=== PATIENT | male | born 1945 | race Caucasian/White ===

== ENCOUNTER 2018-02-28 10:19 | Inpatient (IN) | payer MEDICARE, OTHER, SELFPAY ==
[2018-02-28] VITALS (17 sets, daily range): BP systolic 145–186; BP diastolic 50–86; PULSE 61–85; RESP 13–20; TEMP 36.7–36.9; O2SAT 94–100; BMI 34.9; BMI 34.2
--- NOTE | 2018-02-28 11:03 | CT_ITS ---
STUDY: CTA NECK REASON FOR EXAM: Male, 72 years old. Mental status change TECHNIQUE: 1.25 mm helical cuts were performed through the neck with 100 mL Isovue 370 contrast. MPR performed along with three-dimensional reconstruction of the carotid arteries. COMPARISON: None. FINDINGS: There is a normal-appearing aortic arch with normal origins of the great vessels. Evidence of previous CABG with sternal wires noted. Both CCAs demonstrated normal origins and normal courses through the neck. There are normal carotid bulbs with minimal calcified plaque in the left carotid bulb. There is occlusion of the left ICA at its origin. The right ICA shows approximately 50% stenosis just distal to its origin best seen on axial image 150. The right ICA resumes is normal course and caliber quickly without further evidence of stenosis or dissection. The right vertebral artery is smaller than the left. Soft tissue windows show low-density thyroid nodules. There are scattered subcentimeter jugular chain lymph nodes. No CT evidence of an acute inflammatory process or suspicious inflammation. No airway narrowing or deviation. CT/CTA Neck W/WO Contrast IMPRESSION: Occlusion of the left ICA at its origin Minimal peripheral atherosclerotic plaque in the left common carotid artery bulb 50% stenosis of the right ICA just distal to its origin No suspicious airway narrowing or deviation. No acute inflammation. Electronically Signed: Terrence Dumont MD at 12:24 EDT , Service support ,
--- NOTE | 2018-02-28 11:12 | ED.DCSUM_ITS ---
- ER Visit Summary Date of Service: 02/28/18 Chief Complaint: Right-sided weakness and numbness History of Present Illness: The patient is a 72 M known history of CAD with prior CABG, prior CVAs and TIAs with known carotid stenosis, diet-controlled diabetes and hypertension. Patient was in his normal state of health awoke around 430 this morning and noticed weakness and numbness on his right side. Denies any headache. He was on Plavix that has been stopped but he did take half a Plavix and a baby aspirin this morning. He denies other symptoms. No speech change. Physical Examination: Older male accompanied by his . Vital signs are stable blood pressure 166/68. H EENT exam pupils round reactive light extra motions are intact. No facial droop. Normal speech. No dysarthria or slurring. Neck nontender. Lungs clear to auscultation bilaterally. Abdomen is soft and nontender. Normal bowel sounds no peritoneal signs. Patient is moving all 4 extremities. He has good motor strength 5 out of 5 on both sides. Subjectively he feels that he is weaker on the right. He does have decreased sensation to his right face, arm and leg. He also has dysarthria of the right arm and right leg. Fingertip to nose he is way off on the right index finger. And also with heel to armenta on the right. His neurologic exam is consistent with a NIH score of 3. With subjective paresthesias on the right face, arm and leg. With ataxia of the right arm and leg. Test Results: Neurological evaluation for stroke. CBC normal. Chemistries normal creatinine of 1. Normal gap. PT/INR normal. Troponin normal. EKG shows a sinus rhythm rate is [address] of the head and neck showed a normal [place] of [place]. Neck clear to the left internal carotid artery. CTA of the neck showed no acute abnormality. Chest x-ray no acute abnormality. CT is read by the radiologist reviewed by me. Emergency Department Course and Treatment: This was a wakeup stroke around 430 this morning. Patient NIH score of around 3. Treatment Plan: Repeat exam no significant change. Patient was also evaluated by the neurologist. I have spoken to the hospitalist about admission to the PCU. Disposition: Admission Impression: Acute right-sided CVA with numbness and ataxia Prior CVA. Prior CAD and PR History of hypertension and diabetes This note was generated with Dragon dictation software. It may contain incorrect words, spelling, and punctuation that were not noted in review of the chart prior to signing ED Disposition - Plan for ED Patient: Chief Complaint: Neuro S/Sx Referrals: William Sweet III, MD [Primary Care Provider] -
[2018-02-28 12:15] LABS: Bedside Glucose 127 mg/dL (70-110)
[2018-02-28 13:16] LABS: Absolute Lymphocyte Count 0.99 X10^3/ul (0.83-4.51); Absolute Neutrophil Count 4.8 X10^3/uL (2.0-7.7); Basophil# 0.02 X10^3/uL; Basophil% 0.3 % (0-1); Eosinophils% 1.5 % (0-5); Hematocrit 41.1 % (40-54); Hemoglobin 14.2 g/dl (13.0-16.5); Lymphocyte # 0.99 X10^3/ul (4.0); Lymphocyte % 15.1 % (19-41); Mean Corp Hgb Conc 34.5 g/gl (32-36); Mean Corpuscular Hgb 31.6 pg (27.0-32.0); Mean Corpuscular Volume 91.5 fL (80-94); Mean Platelet Vol. 10.8 fl (6.2-12.0); Monocyte# 0.66 X10^3/uL; Monocyte% 10.1 % (0-10); Neutrophil # 4.76 X10^3/uL (2.7-7.7); Neutrophil % 72.8 % (47-70); POSITIVE COUNT NO; POSITIVE DIFFERENTIAL NO; POSITIVE MORPHOLOGY NO; Platelet Count 139 K/mm3 (150-450); RBC Distribution Width CV 13.6 % (11.6-14.6); RBC Distribution Width SD 44.8 fl (35.1-43.9); Red Blood Count 4.49 M/mm3 (4.6-6.2); White Blood Count 6.5 K/mm3 (4.4-11.0)
[2018-02-28 13:20] LABS: International Normalized Ratio 1.1; Prothrombin Time (Protime)PT. 13.8 SECONDS (11.7-14.9)
[2018-02-28 13:21] LABS: Partial Thromboplast Time 29.3 Seconds (24.1-36.2)
[2018-02-28 13:29] LABS: Anion Gap 8 (5-15); BUN 16 mg/dL (7-18); BUN/Creat Ratio 15.5 RATIO (10-20); Calcium,Total 9.4 mg/dL (8.5-10.1); Chloride 106 mmol/L (98-107); Creatinine, Serum 1.03 mg/dL (0.70-1.30); EST Glomerular Filtration Rate 75 mL/min (>60); Est Glom Filt Rate - Afr Amer 91 mL/min (>60); Glucose 119 mg/dL (74-106); Potassium 4.5 mmol/L (3.5-5.1); Sodium Level 140 mmol/L (136-145)
--- NOTE | 2018-02-28 13:56 | CON.PCM_ITS ---
Problem List (1) Stroke Status: Acute Qualifiers: CVA mechanism: thrombosis Precerebral and cerebral artery: middle cerebral artery Laterality of affected vessel: left Qualified Code(s): I63.312 - Cerebral infarction due to thrombosis of left middle cerebral artery (2) ICAO (internal carotid artery occlusion) Status: Chronic Qualifiers: Laterality: left Qualified Code(s): I65.22 - Occlusion and stenosis of left carotid artery Reason for Consult Date of Consultation: 02/28/18 Reason for Consultation: Stroke History of Present Illness: The patient is a 72 year old CM with PMH HTN, HLD, H/O Stroke/TIA, H/O Left ICA occlusion, H/O Right CEA (May 2017), H/O bladder cancer s/p resection and BCG, CAD s/p CABG, PVD s/p bypass surgery, open angle glaucoma, morbid obesity admitted with right sided numbness. Per patient he woke up this morning (02/28/18 ) around 4:30 am when he felt his right side was numb, he was normal when he went to sleep last night, denies any facial droop, speech disturbances, vision disturbances, CARR or focal motor weakness. Per patient he was on ASA/Plavix after his stroke in the past, but about 3 months ago was asked to stop Plavix which he has not been taking since, but then this morning when he had the symptoms, he took about half Plavix. NIHSS on admission was 3 per ED documentation, patient was not tpa candidate since it was wake up stroke, per patient he lives with his , does not use cane or walker to ambulate, does drive, denies any falls, and does not need any assistance for his ADLs, CTA head /neck showed chronic left ICA occlusion, 50% stenosis of the right ICA,? Left P2 occlusion. [] Past Medical History Past Medical History (Chronic Problems): Chronic Problems ICAO (internal carotid artery occlusion) (Chronic) Hyperlipidemia (Chronic) Hypertension (Chronic) Carotid artery disease (Chronic) Bladder cancer (Chronic) CAD (coronary artery disease) (Chronic) Glaucoma (Chronic) Obesity (Chronic) Allergies quinapril [From Accupril] Adverse Reaction (Verified 02/28/18 10:29) Other COUGH Home Medications: Ambulatory Orders Medication Instructions Recorded Aspirin 325 mg PO DAILY@0800 02/28/18 Aspirin E.C. [Ecotrin] 81 mg PO DAILY@0800 02/28/18 Brimonidine Tartrate/Timolol 1 drop LEFT EYE BID 02/28/18 [Combigan 0.2%-0.5% Eye Drops] Latanoprost/Pf [Latanoprost 0.005% 1 drop EACH EYE DAILY 02/28/18 Eye Drop] Losartan Potassium [Cozaar] 50 mg PO DAILY 02/28/18 Metoprolol Succinate [Toprol Xl] 100 mg PO DAILY 02/28/18 Multivitamin [Daily Multiple 1 tablet PO DAILY 02/28/18 Vitamin] Nitroglycerin [Nitrostat] 0.4 mg SL PRN PRN 02/28/18 Pravastatin [Pravachol] 80 mg PO QHS 02/28/18 Vit C/E/Zn/Coppr/Lutein/Zeaxan 1 capsule PO DAILY 02/28/18 [Preservision Areds 2 Softgel] Smoking Status: Former smoker - *Family History Maternal History Items: Heart Disease, Hypertension Paternal History Items: Cancer - Prostate Review of Systems Constitutional: Reports: - - complete ROS negative except as documented in HPI Patient Problems: Active and Suspected Problems Stroke (Acute) - Physical Exam General: Alert HEENT: Normocephalic Neck: Supple Lungs: Normal air movement Cardiovascular: Normal S1, Normal S2 Abdomen: Bowel Sounds Present Extremities: No cyanosis Skin: No rashes Musculoskeletal: No Tenderness to Palpation of Joints or Extremities Neurological: - - consious, alert, CN 2-12 grossly intact except ?right homonymous hemianopia, power 5/5 both UE/LE, mild sensory loss to light touch right side, extinction present in the right leg, no cerebellar signs, Reflexes + B/L B/S/T/K/A, gait deferred, NIHSS 4 at present, mRS 0 at baseline Psych/Mental Status: Normal Affect Vital Signs Temp Pulse Resp BP Pulse Ox 98.1 F 78 14 162/73 H 98 02/28/18 10:20 02/28/18 13:31 02/28/18 13:31 02/28/18 12:33 02/28/18 13:31 Oxygen Flow Rate (L/min) 2 Oxygen Delivery Method Nasal Cannula Weight: 104.326 kg Body Mass Index (BMI) 34.9 Finger Stick Blood Glucose 127 Laboratory Tests Past 24 Hrs 02/28/18 02/28/18 02/28/18 13:00 13:00 13:00 WBC 6.5 RBC 4.49 L Hgb 14.2 Hct 41.1 MCV 91.5 MCH 31.6 MCHC 34.5 RDW 13.6 RDW Differential 44.8 H Plt Count 139 L MPV 10.8 Immature Gran % (Auto) 0.200 Neut % (Auto) 72.8 H Lymph % (Auto) 15.1 L [place] % (Auto) 10.1 H Eos % (Auto) 1.5 Baso % (Auto) 0.3 Absolute Neuts (auto) 4.8 Absolute Lymphs (auto) 0.99 Total Counted Not Reportable PT 13.8 INR 1.1 APTT 29.3 Sodium 140 Potassium 4.5 Chloride 106 Carbon Dioxide 26.0 Anion Gap 8 BUN 16 Creatinine 1.03 Estim Creat Clear Calc 61.80 Est GFR (MDRD) Af Amer 91 Est GFR (MDRD) Non-Af 75 BUN/Creatinine Ratio 15.5 Glucose 119 H Calcium 9.4 Troponin I 0.025 POC Glucose 02/28/18 12:12 POC Glucose 127 H Assessment/Plan All Active Problems Stroke (Acute) The patient is a 72 year old CM with PMH HTN, HLD, H/O Stroke/TIA, H/O Left ICA occlusion, H/O Right CEA (May 2017), H/O bladder cancer s/p resection and BCG, CAD s/p CABG, PVD s/p bypass surgery, open angle glaucoma, morbid obesity admitted with right sided numbness. Per patient he woke up this morning (02/28/18 ) around 4:30 am when he felt his right side was numb, he was normal when he went to sleep last night, denies any facial droop, speech disturbances, vision disturbances, CARR or focal motor weakness. Per patient he was on ASA/Plavix after his stroke in the past, but about 3 months ago was asked to stop Plavix which he has not been taking since, but then this morning when he had the symptoms, he took about half Plavix. NIHSS on admission was 3 per ED documentation, patient was not tpa candidate since it was wake up stroke, per patient he lives with his , does not use cane or walker to ambulate, does drive, denies any falls, and does not need any assistance for his ADLs, CTA head /neck showed chronic left ICA occlusion, 50% stenosis of the right ICA, ? left P2 occlusion. Impression Acute right sided numbness-Likely Left [employer] stroke Chronic Left ICA occlusion H/O Right CEA in May 2017 Plan -ASA 81 mg PO once daily and Plavix 75 mg PO once daily. Dual AP for 3 months then change to single AP with Plavix. Increased bleeding risk discussed with patient. -Change Pravachol to Lipitor 80 mg PO q hs -Check MRI brain -Check TTE/LDL/Hba1c -Avoid hypotension. Keep head end of the bed flat -Stroke risk factors discussed and stroke education provided -30 day event recorder -PT/OT/ST -GI/DVT prophylaxis -Fall precautions -Further medical management per primary team -Follow up with Neurology as outpatient -Please call with questions if any -Thank you for allowing us to participate in patient's care and management I spent 60 minutes of critical care time taking history, doing physical examination, reviewing medical records, coordinating care and counseling patient and his . Code Visit Inpatient E&M: 01323 Init Hosp L3
--- NOTE | 2018-02-28 15:48 | PCM.HP.STD ---
<Ilene Varma - Last Filed: 02/28/18 16:17> Problem List (1) Stroke Status: Acute Qualifiers: CVA mechanism: thrombosis Precerebral and cerebral artery: middle cerebral artery Laterality of affected vessel: left Qualified Code(s): I63.312 - Cerebral infarction due to thrombosis of left middle cerebral artery (2) ICAO (internal carotid artery occlusion) Status: Chronic Qualifiers: Laterality: left Qualified Code(s): I65.22 - Occlusion and stenosis of left carotid artery (3) Hyperlipidemia Status: Chronic (4) Hypertension Status: Chronic (5) Carotid artery disease Status: Chronic (6) Bladder cancer Status: Chronic (7) CAD (coronary artery disease) Status: Chronic (8) Glaucoma Status: Chronic (9) Obesity Status: Chronic History of Present Illness Date of Admission: 02/28/18 Chief Complaint: Right sided numbness, weakness, right vision changes. The patient is a 72 year old M who presents to the Emergency Room due to right sided numbness and weakness and associated loss of peripheral vision right side. Patient states this began approximately 4am this morning. He denies speech changes, facial droop, difficulty swallowing. Symptoms have improved since arriving to ER. Continues to have right-sided numbness. Denies significant right-sided weakness. States he has history of TIA. Denies history of stroke. States he was previously on aspirin which she stopped taking 3 months ago. Does not follow with neurology. Patient notes he has chronic vision changes due to glaucoma however his right peripheral vision seems to be worsened since this morning. He denies chest pain, shortness of breath. He has a past medical history of TIA, left ICA occlusion, right CEA, hypertension, hyperlipidemia, bladder cancer currently undergoing BCG treatment, CAD status post CABG, PVD, open-angle glaucoma, obesity. Past Medical History Past Medical History (Chronic Problems): Chronic Problems ICAO (internal carotid artery occlusion) (Chronic) Hyperlipidemia (Chronic) Hypertension (Chronic) Carotid artery disease (Chronic) Bladder cancer (Chronic) CAD (coronary artery disease) (Chronic) Glaucoma (Chronic) Obesity (Chronic) Allergies quinapril [From Accupril] Adverse Reaction (Verified 02/28/18 10:29) Other COUGH Home Medications: Ambulatory Orders Medication Instructions Recorded Aspirin 325 mg PO DAILY@0802/28/18 Aspirin E.C. [Ecotrin] 81 mg PO DAILY@0800 02/28/18 Brimonidine Tartrate/Timolol 1 drop LEFT EYE BID 02/28/18 [Combigan 0.2%-0.5% Eye Drops] Latanoprost/Pf [Latanoprost 0.005% 1 drop EACH EYE DAILY 02/28/18 Eye Drop] Losartan Potassium [Cozaar] 50 mg PO DAILY 02/28/18 Metoprolol Succinate [Toprol Xl] 100 mg PO DAILY 02/28/18 Multivitamin [Daily Multiple 1 tablet PO DAILY 02/28/18 Vitamin] Nitroglycerin [Nitrostat] 0.4 mg SL PRN PRN 02/28/18 Pravastatin [Pravachol] 80 mg PO QHS 02/28/18 Vit C/E/Zn/Coppr/Lutein/Zeaxan 1 capsule PO DAILY 02/28/18 [Preservision Areds 2 Softgel] Surgical History: - - CABG, aortofemoral bypass, right carotid endarterectomy, bladder tumor resection. Psychiatric History: No pertinent psych hx Lives: Spouse/ Significant Other Smoking Status: Former smoker Tobacco Use: Non-smoker Drugs: None - *Family History Maternal History Items: Heart Disease, Hypertension Paternal History Items: Cancer - Prostate Review of Systems Constitutional: Denies: Chills, Fever, Weight Change Eyes: Reports: Vision Change - Right peripheral HEENT: Denies: Difficulty Swallowing, Dysphasia, Head Aches, Sinus Congestion, Sinus Drainage Cardiovascular: Denies: Chest Pain, Edema, Light Headedness, Palpitations, Syncope Respiratory: Denies: Cough, Shortness of breath at rest, Sputum production Gastrointestinal: Denies: Abdominal Pain, Nausea, Vomiting Genitourinary: Denies: Dysuria Musculoskeletal: Denies: Joint Pain, Joint Tenderness Skin: Denies: Rash, Wounds Neurological: Reports: Numbness - Right arm, right leg. Denies: Slurred speech, Confusion, Difficulty swallowing, Focal weakness, Tingling Psychiatric: Denies: Anxiety, Depression, Homicidal Ideations, Suicidal Ideations Hematologic/ Lymphatic: Denies: Easy Bruising, Easy Bleeding VTE Information - Inpt Only VTE Present on Admission: No VTE Mechan Device Prophylaxis: None VTE Pharm Prophylaxis ordered?: Yes Patient Problems: Active and Suspected Problems Stroke (Acute) - Physical Exam General: Alert, Oriented x3, Cooperative, No apparent distress HEENT: Atraumatic, PERRLA, EOMI, Normocephalic Oral: Moist Mucosa Neck: Supple, No JVD, Negative Carotid Bruits Lungs: Clear to auscultation, Diminished Cardiovascular: Regular rate, Regular Rhythm, Normal S1, Normal S2, No murmurs Abdomen: Bowel Sounds Present, Soft, Non Tender, Non-Distended, Obese Extremities: No clubbing, No cyanosis, No edema, Capillary Refill Less than 3 Seconds Skin: No rashes, No breakdown Musculoskeletal: No Tenderness to Palpation of Joints or Extremities Neurological: Cranial nerves II-XII grossly intact, - - RUE/RLE sensory deficit and ataxia. Right hemianopia. Strength equal bilaterally. Psych/Mental Status: Normal Affect, Appropriate Vital Signs Temp Pulse Resp BP Pulse Ox 98.1 F 71 16 166/50 H 96 02/28/18 10:20 02/28/18 15:30 02/28/18 15:30 02/28/18 15:30 02/28/18 15:30 Oxygen Flow Rate (L/min) 2 Oxygen Delivery Method Room Air Weight: 230 lb Body Mass Index (BMI) 34.9 Finger Stick Blood Glucose 127 Laboratory Tests Past 24 Hrs 02/28/18 02/28/18 02/28/18 13:00 13:00 13:00 WBC 6.5 RBC 4.49 L Hgb 14.2 Hct 41.1 MCV 91.5 MCH 31.6 MCHC 34.5 RDW 13.6 RDW Differential 44.8 H Plt Count 139 L MPV 10.8 Immature Gran % (Auto) 0.200 Neut % (Auto) 72.8 H Lymph % (Auto) 15.1 L [place] % (Auto) 10.1 H Eos % (Auto) 1.5 Baso % (Auto) 0.3 Absolute Neuts (auto) 4.8 Absolute Lymphs (auto) 0.99 Total Counted Not Reportable PT 13.8 INR 1.1 APTT 29.3 Sodium 140 Potassium 4.5 Chloride 106 Carbon Dioxide 26.0 Anion Gap 8 BUN 16 Creatinine 1.03 Estim Creat Clear Calc 61.80 Est GFR (MDRD) Af Amer 91 Est GFR (MDRD) Non-Af 75 BUN/Creatinine Ratio 15.5 Glucose 119 H Calcium 9.4 Troponin I 0.025 POC Glucose 02/28/18 12:12 POC Glucose 127 H Assessment/Plan All Active Problems Stroke (Acute) 1. Acute right-sided numbness, ataxia-suspected left MCA stroke. Neurology following. Patient reports history of TIA. Denies history of CVA. Head CTA showed chronic occluded left ICA. No other significant stenosis. Next CTA showed 50% stenosis right ICA. Obtain MRI of brain. Change home Pravachol regimen to Lipitor 80 mg p.o. nightly. Continue aspirin 81 mg and Plavix 75 mg, dual antiplatelet therapy for 3 months. Patient can then resume Plavix only. Obtain echo. Check fasting lipid panel in a.m. Hemoglobin A1c. Permissive hypertension. 30-day event recorder at discharge. PT/OT/ST. Neuro check Q4. 2. Carotid artery disease-chronic left ICA occlusion. History of right carotid endarterectomy May 2017. Continue aspirin, statin. 3. CAD status post CABG-continue aspirin, statin, metoprolol. Denies chest pain. Patient reports normal stress test in October 2016. 4. Bladder cancer-currently undergoing BCG treatment. 5. PVD-continue aspirin, statin. 6. Open-angle glaucoma-resume home ophthalmic regimen. 7. Obesity-encourage diet and lifestyle modifications. Nutrition consult. 8. Hypertension-permissive secondary to #1. Avoid hypotension. 9. Hyperlipidemia-continue high-dose statin. 10. Unclear history of type 2 diabetes mellitus-not on home regimen. Check hemoglobin A1c. 11. History of aortofemoral bypass DVT prophylaxis-Lovenox subcu. This patient was seen by JOSEPH Moran under the supervision of Dr. Salazar. <Aristides Salazar F - Last Filed: 02/28/18 16:37> History of Present Illness The patient is a 72 year old M [] Past Medical History Allergies quinapril [From Accupril] Adverse Reaction (Verified 02/28/18 10:29) Other COUGH - Physical Exam Vital Signs Temp Pulse Resp BP Pulse Ox 98.1 F 66 18 151/68 H 95 02/28/18 16:21 02/28/18 16:21 02/28/18 16:21 02/28/18 16:21 02/28/18 16:21 Oxygen Delivery Method Room Air Weight: 225 lb 12.054 oz Body Mass Index (BMI) 34.2 Assessment/Plan Addendum: Dr. Salazar I personally examined the patient and reviewed the chart. I agree with the above. Raymundo Barahona is a 72-year-old male with significant vascular history including coronary artery disease status post CABG and a carotid artery disease with chronic left ICA occlusion is 100%. He presents with acute right sided numbness in both his upper and lower extremity. He denies any weakness in any of his extremities. General: Alert, Oriented x3, Cooperative, No apparent distress HEENT: Atraumatic, PERRLA, EOMI, Normocephalic Oral: Moist Mucosa Neck: Supple, No JVD Lungs: Clear to auscultation, Normal air movement, No rhonchi, No wheeze, No rales Cardiovascular: Regular rate, Regular Rhythm, Normal S1, Normal S2, No murmurs Abdomen: Soft, Non Tender, Non-Distended, No Hepato-splenomegaly Extremities: No edema, Capillary Refill Less than 3 Seconds Skin: No rashes, No breakdown Musculoskeletal: No Tenderness to Palpation of Joints or Extremities Neurological: Cranial nerves II-XII grossly intact, Motor Exam 5/5 strength throughout, sensation diminished on the RUE and RLE. Proprioception intact Psych/Mental Status: Normal Affect, Appropriate 1. Acute CVA/coronary artery disease status post CABG/carotid artery occlusion on the left -We will obtain an MRI and an echo. -Panel and A1c pending. -We will start both aspirin and Plavix as well as switch his pravastatin to Lipitor 80 mg daily. -The aspirin and Plavix will be continued for 3 weeks at which point the aspirin will be discontinued and he will be continued only on Plavix. -Per the he had been on aspirin and Plavix prior to this for the last couple of years and she did not notice a significant difference in his bleeding since stopping the Plavix. -We will hold his blood pressure medications for now for permissive hypertension for the next 24-48 hours parameters will be to treat any blood pressures greater than 220 systolic. Code Visit Inpatient E&M: 13829 Init Hosp L3
[2018-02-28 17:17] LABS: Cholesterol 138 mg/dL (200); High Density Lipoprotein 29 mg/dL; Triglycerides 122 mg/dL; Very Low Density Lipoprotein 24 mg/dL (5-40)
[2018-02-28] MEDS: Aspirin 81 MG TAB.CHEW PO (17:46)
[2018-02-28] MEDS: Clopidogrel Bisulfate 75 MG Tablet PO (17:46)
[2018-02-28 18:56] LABS: Hemoglobin A1c 5.7 % (4.2-6.3)
[2018-02-28] MEDS: Heparin Injection (Vial) 5,000 UNIT/ML VIAL 5000 UNIT SC (21:54)
[2018-02-28] MEDS: Atorvastatin Calcium 80 MG Tablet PO (21:54)
[2018-02-28] MEDS: Docusate Sodium 100 MG Capsule PO (21:54)
[2018-03-01] VITALS (14 sets, daily range): BP systolic 139–164; BP diastolic 66–86; PULSE 62–79; RESP 16–18; TEMP 36.4–37.1; O2SAT 94–97; BMI 34.2
[2018-03-01 06:22] LABS: Anion Gap 11 (5-15); BUN 14 mg/dL (7-18); BUN/Creat Ratio 13.7 RATIO (10-20); Calcium,Total 8.9 mg/dL (8.5-10.1); Chloride 107 mmol/L (98-107); Creatinine, Serum 1.02 mg/dL (0.70-1.30); EST Glomerular Filtration Rate 76 mL/min (>60); Est Glom Filt Rate - Afr Amer 92 mL/min (>60); Glucose 105 mg/dL (74-106); Sodium Level 143 mmol/L (136-145)
[2018-03-01] MEDS: Heparin Injection (Vial) 5,000 UNIT/ML VIAL 5000 UNIT SC ×2 (09:07→21:46)
[2018-03-01] MEDS: Docusate Sodium 100 MG Capsule PO ×2 (09:07→21:46)
[2018-03-01] MEDS: Multivitamins,Ther W-Minerals Tablet 1 TABLET PO (09:07)
[2018-03-01] MEDS: Bisacodyl 5 MG Tablet PO (09:07)
[2018-03-01] MEDS: Latanoprost 0.005% 1 Bottle 1 DRP EACH EYE (09:08)
[2018-03-01] MEDS: Clopidogrel Bisulfate 75 MG Tablet PO (09:10)
[2018-03-01] MEDS: Aspirin 81 MG TAB.CHEW PO (09:10)
--- NOTE | 2018-03-01 11:03 | CASEMGMT ---
This RN CM to room to complete CM assessment and pt is currently getting ECHO completed at this time. This RN CM will attempt again later. [place] RN CM
--- NOTE | 2018-03-01 12:41 | PCM.PROGNOTE ---
<Ilene Varma - Last Filed: 03/01/18 12:53> Patient Problems: Active and Suspected Problems Stroke (Acute) Subjective: Patient seen and examined. Feels vision in the right eye and right-sided numbness has improved slightly. Denies new neurologic deficits. PT recommending rehab for further therapy. Patient hesitant, however going to discuss with . - Physical Exam General: Alert, Oriented x3, Cooperative, No apparent distress HEENT: Atraumatic, PERRLA, EOMI, Normocephalic, - - Right eye peripheral deficit Neck: Supple, No JVD, Negative Carotid Bruits Lungs: Clear to auscultation, Diminished Cardiovascular: Regular rate, Regular Rhythm, Normal S1, Normal S2, No murmurs Abdomen: Bowel Sounds Present, Soft, Non Tender, Non-Distended Extremities: No clubbing, No cyanosis, No edema, Capillary Refill Less than 3 Seconds Skin: No rashes, No breakdown Musculoskeletal: No Tenderness to Palpation of Joints or Extremities Neurological: Cranial nerves II-XII grossly intact, - - RUE/RLE sensory deficit and ataxia. Right hemianopia. Strength equal bilaterally. Psych/Mental Status: Normal Affect, Appropriate Vital Signs Temp Pulse Resp BP Pulse Ox 98.7 F 76 18 163/76 H 94 03/01/18 09:11 03/01/18 11:13 03/01/18 09:11 03/01/18 09:11 03/01/18 09:11 Oxygen Delivery Method Room Air Weight: 225 lb 12.054 oz Body Mass Index (BMI) 34.2 Intake and Output for Last 24 Hours 02/27/18 02/28/18 03/01/18 23:59 23:59 23:59 Intake Total 480 / 480 120 / 120 Output Total 1000 / 1000 750 / 750 Balance -520 / -520 -630 / -630 Laboratory Tests Past 24 Hrs 03/01/18 05:20 Sodium 143 Potassium 4.0 Chloride 107 Carbon Dioxide 25.0 Anion Gap 11 BUN 14 Creatinine 1.02 Estim Creat Clear Calc 62.40 Est GFR (MDRD) Af Amer 92 Est GFR (MDRD) Non-Af 76 BUN/Creatinine Ratio 13.7 Glucose 105 Calcium 8.9 Medical Necessity - Tobacco Use Smoking Status: Former smoker Tobacco Use: Non-smoker Assessment/Plan All Active Problems Stroke (Acute) 1. Right-sided numbness, ataxia, right hemianopia-subacute left MCA stroke. Neurology following. Patient reports history of TIA. Denies history of CVA. Head CTA showed chronic occluded left ICA. No other significant stenosis. Next CTA showed 50% stenosis right ICA. MRI of brain showed subacute cortical based ischemic infarct of the left lingual gyrus, left para hippocampus and left hippocampus. Subacute lacunar ischemic infarct in the left thalamus. Change home Pravachol regimen to Lipitor 80 mg p.o. nightly. Continue aspirin 81 mg and Plavix 75 mg, dual antiplatelet therapy for 3 months. Patient can then resume Plavix only. Echocardiogram pending. Fasting lipid panel and hemoglobin A1c within normal limits. Permissive hypertension. 30-day event recorder at discharge. PT/OT/ST. PT recommending further therapy. Rehab versus TCU at discharge. 2. Carotid artery disease-chronic left ICA occlusion. History of right carotid endarterectomy May 2017. Continue aspirin, statin. 3. CAD status post CABG-continue aspirin, statin, metoprolol. Denies chest pain. Patient reports normal stress test in October 2016. 4. Bladder cancer-currently undergoing BCG treatment. 5. PVD-continue aspirin, statin. 6. Open-angle glaucoma-resume home ophthalmic regimen. 7. Obesity-encourage diet and lifestyle modifications. Nutrition consult. 8. Hypertension-permissive secondary to #1. Avoid hypotension. 9. Hyperlipidemia-continue high-dose statin. 10. Elevated glucose on admission- hemoglobin A1c 5.7%. 11. History of aortofemoral bypass DVT prophylaxis-Lovenox subcu. Discharge planning: Rehab vs SNF pending pre-CERT. This patient was seen by JOSEPH Moran under the supervision of Dr. Clayton. <Joanna Clayton - Last Filed: 03/01/18 14:08> - Physical Exam Vital Signs Temp Pulse Resp BP Pulse Ox 98.7 F 76 18 163/76 H 94 03/01/18 09:11 03/01/18 11:13 03/01/18 09:11 03/01/18 09:11 03/01/18 09:11 Oxygen Delivery Method Room Air Weight: 225 lb 12.054 oz Body Mass Index (BMI) 34.2 Intake and Output for Last 24 Hours 02/27/18 02/28/18 03/01/18 23:59 23:59 23:59 Intake Total 480 / 480 120 / 120 Output Total 1000 / 1000 750 / 750 Balance -520 / -520 -630 / -630 Laboratory Tests Past 24 Hrs 03/01/18 05:20 Sodium 143 Potassium 4.0 Chloride 107 Carbon Dioxide 25.0 Anion Gap 11 BUN 14 Creatinine 1.02 Estim Creat Clear Calc 62.40 Est GFR (MDRD) Af Amer 92 Est GFR (MDRD) Non-Af 76 BUN/Creatinine Ratio 13.7 Glucose 105 Calcium 8.9 Assessment/Plan Patient seen by Ilene Varma nurse practitioner under my supervision. Patient seen and examined. He says right upper extremity numbness and weakness is resolving. He denies any blurred vision, chest pain, shortness of breath, abdominal pain, diarrhea vomiting. Review of systems otherwise negative. Neurology on board. Head CT showed chronic left occluded ICA and a subacute left MCA stroke. He had been taking Plavix but discontinued it upward about 3 months ago on advice. o/e: Vital Signs Height 5 ft 8.11 in Weight: 225 lb 12.054 oz Weight in Pounds 225.8 lbs Pulse Ox 94 Temperature 98.7 F Pulse Rate 76 Respiratory Rate 18 Blood Pressure 163/76 Blood Pressure Position Semi-Fowlers General: Alert, Oriented x3, Cooperative, No apparent distress HEENT: Atraumatic, PERRLA, EOMI, Normocephalic, - - Right eye peripheral deficit Neck: Supple, No JVD, Negative Carotid Bruits Lungs: Clear to auscultation, Diminished Cardiovascular: Regular rate, Regular Rhythm, Normal S1, Normal S2, No murmurs Abdomen: Bowel Sounds Present, Soft, Non Tender, Non-Distended Extremities: No clubbing, No cyanosis, No edema, Capillary Refill Less than 3 Seconds Skin: No rashes, No breakdown Musculoskeletal: No Tenderness to Palpation of Joints or Extremities Neurological: Cranial nerves II-XII grossly intact, has some expressive aphasia. Power 5/5 in all extremities. Mild RUE nad RLE sensory deficit. Gait not checked. NIHSS today-5 Psych/Mental Status: Normal Affect, Appropriate Assessment and Plan 1. Acute right MCA stroke Neurology on board. On aspirin and Plavix. To continue once daily for 3 months and then to switch to Plavix alone. Neurology on board. Continue high intensity statin. 2D echocardiogram showed moderately dilated left ventricle with mild concentric left ventricular hypertrophy and moderate left ventricular systolic dysfunction with mild global right ventricular systolic dysfunction. Global longitudinal strain is 30% which is abnormal. MRI showed a subacute cortical based ischemic infarct of the left lingual gyrus and left upper hippocampus and left hippocampus with a subacute lacunar ischemic infarct in the left thalamus. A1C was 5.7. PT OT on board. Fasting lipid panel is also within normal limits. Permissive hypertension so blood pressure medications on hold. To have a 30 day looping event recorder discharge. Disposition is for rehab for further therapy. Rest of management as per Ilene Varma's notes. Agree with above assessment and plan by Ilene Varma. Code Visit Inpatient E&M: 57160 Subs Hosp L2
--- NOTE | 2018-03-01 12:59 | CASEMGMT ---
Addendum entered by Lianet Vaughn 03/01/18 13:16: Patient's prescription coverage is through his [facility] and [employer]. Lianet FRYE MANAGEMENT REP Original Note: SW met with patient and his . Introduced self and role at [facility]. Patient sees several specialists: Dr Norwood is his Urologist, Dr Albarran is his Dr for circulation, Dr Chaudhary for cardiology, and Dr Ruvalcaba for optometry. SW discussed [facility] TCU and [facility] Rehab unit. Patient's said they would prefer he go home and do outpatient therapy. SW asked patient's if she was in the room when therapy worked with patient and she was. SW asked if she feels she will be able to manage patient at home. She said she feels she will be fine with him at home. REBECCA notified SENIOR VICE PRESIDENT AND CHIEF INFORMATION OFFICER and RN CM that they would be okay with [facility] for therapy. Plan: Outpatient therapy. Lianet FRYE MANAGEMENT REP
--- NOTE | 2018-03-01 14:42 | CASEMGMT ---
Per ESTHER Odom, Dr Victoria spoke with patient about going to TCU or rehab unit and he agreed. SW spoke with Vielka and rehab has a discharge tomorrow. SW will let patient and his know he can go to the rehab unit when ready. Plan: [facility] 4th floor rehab unit L[facility]et [facility]
--- NOTE | 2018-03-01 15:00 | PCM.PN.NEU ---
Patient Problems: Active and Suspected Problems Stroke (Acute) Subjective: No Issues overnight. Continues to have right sided numbness, though there is slight improvement per patient and per patient his vision has improved. MRI brain shows acute/subacute Left MBA INTERNSHIP (left medial temporal/medial occipital) stroke. - Physical Exam General: Alert HEENT: Normocephalic Neck: Supple Lungs: Clear to auscultation Cardiovascular: Normal S1, Normal S2 Abdomen: Bowel Sounds Present Extremities: No cyanosis Skin: No rashes Musculoskeletal: No Tenderness to Palpation of Joints or Extremities Neurological: - - consious, alert, CN 2-12 grossly intact except ?right homonymous hemianopia, power 5/5 both UE/LE, mild sensory loss to light touch right side, extinction present in the right leg, no cerebellar signs, Reflexes + B/L B/S/T/K/A, gait deferred, NIHSS 4 at present, mRS 0 at baseline Psych/Mental Status: Normal Affect Vital Signs Temp Pulse Resp BP Pulse Ox 97.5 F L 75 18 160/86 H 97 03/01/18 13:00 03/01/18 13:00 03/01/18 13:00 03/01/18 13:00 03/01/18 13:00 Oxygen Delivery Method Room Air Weight: 102.4 kg Body Mass Index (BMI) 34.2 Intake and Output for Last 24 Hours 02/27/18 02/28/18 03/01/18 23:59 23:59 23:59 Intake Total 480 / 480 800 / 800 Output Total 1000 / 1000 1300 / 1300 Balance -520 / -520 -500 / -500 Laboratory Tests Past 24 Hrs 03/01/18 05:20 Sodium 143 Potassium 4.0 Chloride 107 Carbon Dioxide 25.0 Anion Gap 11 BUN 14 Creatinine 1.02 Estim Creat Clear Calc 62.40 Est GFR (MDRD) Af Amer 92 Est GFR (MDRD) Non-Af 76 BUN/Creatinine Ratio 13.7 Glucose 105 Calcium 8.9 Medical Necessity - Tobacco Use Smoking Status: Former smoker Tobacco Use: Non-smoker Assessment/Plan All Active Problems Stroke (Acute) The patient is a 72 year old CM with PMH HTN, HLD, H/O Stroke/TIA, H/O Left ICA occlusion, H/O Right CEA (May 2017), H/O bladder cancer s/p resection and BCG, CAD s/p CABG, PVD s/p bypass surgery, open angle glaucoma, morbid obesity admitted with right sided numbness. Per patient he woke up this morning (02/28/18) around 4:30 am when he felt his right side was numb, he was normal when he went to sleep last night, denies any facial droop, speech disturbances, vision disturbances, CARR or focal motor weakness. Per patient he was on ASA/Plavix after his stroke in the past, but about 3 months ago was asked to stop Plavix which he has not been taking since, but then this morning when he had the symptoms, he took about half Plavix. NIHSS on admission was 3 per ED documentation, patient was not tpa candidate since it was wake up stroke, per patient he lives with his , does not use cane or walker to ambulate, does drive, denies any falls, and does not need any assistance for his ADLs, CTA head/neck showed chronic left ICA occlusion, 50% stenosis of the right ICA, ? left P2 occlusion. Impression Acute right sided numbness-Left MBA INTERNSHIP stroke Chronic Left ICA occlusion. ? Left P2 occlusion H/O Right CEA in May 2017 Plan -ASA 81 mg PO once daily and Plavix 75 mg PO once daily. Dual AP for 3 months then change to single AP with Plavix. Increased bleeding risk discussed with patient. -Lipitor 80 mg PO q hs -MRI brain-acute/subacute left MBA INTERNSHIP stroke (left medial temporal/medial occipital infarct) -Check TTE-EF 30%, moderately dilated LA, no ASD and LDL-85, Pdc7o-2.7% -Avoid hypotension. Keep head end of the bed flat -Stroke risk factors discussed and stroke education provided -30 day event recorder -Recommend ophthalmology evaluation as outpatient, for driving clearance. -PT/OT/ST -GI/DVT prophylaxis -Fall precautions -Further medical management per primary team -Follow up with Neurology as outpatient in 3-4 weeks -Please call with questions if any -Thank you for allowing us to participate in patient's care and management I spent 30 minutes of critical care time taking history, doing physical examination, reviewing medical records, coordinating care and counseling patient and his .
--- NOTE | 2018-03-01 15:04 | PN.NEURO_ITS ---
Patient Problems: Active and Suspected Problems Stroke (Acute) Subjective: No Issues overnight. Continues to have right sided numbness, though there is slight improvement per patient and per patient his vision has improved. 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 - Physical Exam General: Alert HEENT: Normocephalic Neck: Supple Lungs: Clear to auscultation Cardiovascular: Normal S1, Normal S2 Abdomen: Bowel Sounds Present Extremities: No cyanosis Skin: No rashes Musculoskeletal: No Tenderness to Palpation of Joints or Extremities Neurological: - - consious, alert, CN 2-12 grossly intact except ?right homonymous hemianopia, power 5/5 both UE/LE, mild sensory loss to light touch right side, extinction present in the right leg, no cerebellar signs, Reflexes + B/L B/S/T/K/A, gait deferred, NIHSS 4 at present, mRS 0 at baseline Psych/Mental Status: Normal Affect Vital Signs Temp Pulse Resp BP Pulse Ox 97.5 F L 75 18 160/86 H 97 03/01/18 13:00 03/01/18 13:00 03/01/18 13:00 03/01/18 13:00 03/01/18 13:00 Oxygen Delivery Method Room Air Weight: 102.4 kg Body Mass Index (BMI) 34.2 Intake and Output for Last 24 Hours 02/27/18 02/28/18 03/01/18 23:59 23:59 23:59 Intake Total 480 / 480 800 / 800 Output Total 1000 / 1000 1300 / 1300 Balance -520 / -520 -500 / -500 Laboratory Tests Past 24 Hrs 03/01/18 05:20 Sodium 143 Potassium 4.0 Chloride 107 Carbon Dioxide 25.0 Anion Gap 11 BUN 14 Creatinine 1.02 Estim Creat Clear Calc 62.40 Est GFR (MDRD) Af Amer 92 Est GFR (MDRD) Non-Af 76 BUN/Creatinine Ratio 13.7 Glucose 105 Calcium 8.9 Medical Necessity - Tobacco Use Smoking Status: Former smoker Tobacco Use: Non-smoker Assessment/Plan All Active Problems Stroke (Acute) The patient is a 72 year old CM with PMH HTN, HLD, H/O Stroke/TIA, H/O Left ICA occlusion, H/O Right CEA (May 2017), H/O bladder cancer s/p resection and BCG, CAD s/p CABG, PVD s/p bypass surgery, open angle glaucoma, morbid obesity admitted with right sided numbness. Per patient he woke up this morning (02/28/18 ) around 4:30 am when he felt his right side was numb, he was normal when he went to sleep last night, denies any facial droop, speech disturbances, vision disturbances, CARR or focal motor weakness. Per patient he was on ASA/Plavix after his stroke in the past, but about 3 months ago was asked to stop Plavix which he has not been taking since, but then this morning when he had the symptoms, he took about half Plavix. NIHSS on admission was 3 per ED documentation, patient was not tpa candidate since it was wake up stroke, per patient he lives with his , does not use cane or walker to ambulate, does drive, denies any falls, and does not need any assistance for his ADLs, CTA head /neck showed chronic left ICA occlusion, 50% stenosis of the right ICA, ? left P2 occlusion. 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 ? Left P2 occlusion H/O Right CEA in May 2017 Plan -ASA 81 mg PO once daily and Plavix 75 mg PO once daily. Dual AP for 3 months then change to single AP with Plavix. Increased bleeding risk discussed with patient. -Lipitor 80 mg PO q hs -MRI brain-acute/subacute left [employer]ICA[employer] BILLING CLERK stroke (left medial temporal/medial occipital infarct) -Check TTE-EF 30%, moderately dilated LA, no ASD and LDL-85, Gcn0t-2.7% -Avoid hypotension. Keep head end of the bed flat -Stroke risk factors discussed and stroke education provided -30 day event recorder -Recommend ophthalmology evaluation as outpatient, for driving clearance. -PT/OT/ST -GI/DVT prophylaxis -Fall precautions -Further medical management per primary team -Follow up with Neurology as outpatient in 3-4 weeks -Please call with questions if any -Thank you for allowing us to participate in patient's care and management I spent 30 minutes of critical care time taking history, doing physical examination, reviewing medical records, coordinating care and counseling patient and his .
--- NOTE | 2018-03-01 15:07 | CASEMGMT ---
Per HOUSEHOLD CHORES, Ilene patient has agreed to go to TCU or rehab whichever has a bed. SW spoke with Vielka and rehab has a d/c tomorrow so they would have a bed. She will check with Dr Victoria to make sure he is okay with patient coming to rehab unit. Lianet FRYE MSW
--- NOTE | 2018-03-01 15:16 | CASEMGMT ---
REBECCA let patient know he can go to the rehab unit when ready. Plan: [facility] 4th floor rehab unit [facility]
[2018-03-01] MEDS: Atorvastatin Calcium 80 MG Tablet PO (21:46)
[2018-03-02] VITALS (7 sets, daily range): BP systolic 144–165; BP diastolic 67–87; PULSE 58–101; RESP 16–18; TEMP 36.3–36.7; O2SAT 95–97; BMI 34.2
[2018-03-02 06:15] LABS: Absolute Lymphocyte Count 1.24 X10^3/ul (0.83-4.51); Absolute Neutrophil Count 4.5 X10^3/uL (2.0-7.7); Basophil# 0.02 X10^3/uL; Basophil% 0.3 % (0-1); Eosinophil# 0.19 X10^3/uL; Eosinophils% 2.8 % (0-5); Hemoglobin 13.8 g/dl (13.0-16.5); Lymphocyte # 1.24 X10^3/ul (4.0); Lymphocyte % 18.1 % (19-41); Mean Corp Hgb Conc 33.7 g/gl (32-36); Mean Corpuscular Hgb 30.9 pg (27.0-32.0); Mean Corpuscular Volume 91.9 fL (80-94); Mean Platelet Vol. 11.2 fl (6.2-12.0); Monocyte# 0.91 X10^3/uL; Monocyte% 13.3 % (0-10); Neutrophil # 4.47 X10^3/uL (2.7-7.7); Neutrophil % 65.4 % (47-70); Platelet Count 145 K/mm3 (150-450); RBC Distribution Width CV 13.5 % (11.6-14.6); RBC Distribution Width SD 44.6 fl (35.1-43.9); Red Blood Count 4.46 M/mm3 (4.6-6.2); White Blood Count 6.8 K/mm3 (4.4-11.0)
[2018-03-02 06:16] LABS: POSITIVE COUNT NO; POSITIVE DIFFERENTIAL NO; POSITIVE MORPHOLOGY NO
[2018-03-02 06:28] LABS: Anion Gap 9 (5-15); BUN 17 mg/dL (7-18); BUN/Creat Ratio 16.8 RATIO (10-20); Calcium,Total 9.6 mg/dL (8.5-10.1); Chloride 106 mmol/L (98-107); Creatinine, Serum 1.01 mg/dL (0.70-1.30); EST Glomerular Filtration Rate 77 mL/min (>60); Est Glom Filt Rate - Afr Amer 93 mL/min (>60); Estimated Creatinine Clearance 63.02 ml/min; Glucose 124 mg/dL (74-106); Potassium 4.1 mmol/L (3.5-5.1); Sodium Level 141 mmol/L (136-145)
--- NOTE | 2018-03-02 09:35 | PCM.CONS.C ---
Problem List (1) Stroke Status: Acute Qualifiers: CVA mechanism: thrombosis Precerebral and cerebral artery: middle cerebral artery Laterality of affected vessel: left Qualified Code(s): I63.312 - Cerebral infarction due to thrombosis of left middle cerebral artery (2) CAD (coronary artery disease) Status: Chronic Qualifiers: Coronary Disease-Associated Artery/Lesion type: bypass graft, autologous vein Reason for Consult Date of Consultation: 03/02/18 Reason for Consultation: Low EF, noted on Echo, done for CVA History of Present Illness: The patient is a 72 year old M [] Past Medical History Allergies/Adverse Reactions: Allergies quinapril [From Accupril] Adverse Reaction (Verified 02/28/18 10:29) Other COUGH Home Medications: Ambulatory Orders Medication Instructions Recorded Aspirin E.C. [Ecotrin] 81 mg PO DAILY@0800 02/28/18 Brimonidine Tartrate/Timolol 1 drop LEFT EYE BID 02/28/18 [Combigan 0.2%-0.5% Eye Drops] Latanoprost/Pf [Latanoprost 0.005% 1 drop EACH EYE DAILY 02/28/18 Eye Drop] Losartan Potassium [Cozaar] 50 mg PO DAILY 02/28/18 Metoprolol Succinate [Toprol Xl] 100 mg PO DAILY 02/28/18 Multivitamin [Daily Multiple 1 tablet PO DAILY 02/28/18 Vitamin] Nitroglycerin [Nitrostat] 0.4 mg SL PRN PRN 02/28/18 Pravastatin [Pravachol] 80 mg PO QHS 02/28/18 Vit C/E/Zn/Coppr/Lutein/Zeaxan 1 capsule PO DAILY 02/28/18 [Preservision Areds 2 Softgel] Clopidogrel Bisulfate [Plavix] 75 mg PO DAILY tablet 03/02/18 Docusate Sodium [Colace] 100 mg PO BID capsule 03/02/18 Past Medical History (Chronic Problems): Chronic Problems ICAO (internal carotid artery occlusion) (Chronic) Hyperlipidemia (Chronic) Hypertension (Chronic) Carotid artery disease (Chronic) Bladder cancer (Chronic) CAD (coronary artery disease) (Chronic) Glaucoma (Chronic) Obesity (Chronic) Surgical History: - - CABG, aortofemoral bypass, right carotid endarterectomy, bladder tumor resection. Psychiatric History: No pertinent psych hx - *Family History Maternal History Items: Heart Disease, Hypertension Paternal History Items: Cancer - Prostate Lives: Spouse/ Significant Other Smoking Status: Former smoker Tobacco Use: Non-smoker Drugs: None Review of Systems - Review of Systems General: Denies: Fever - 12 system reviewed. Pertinent positive and negative ones are per HPI., Night Sweats, Fatigue Cardiovascular: Denies: Chest Discomfort, Shortness of Breath, Orthopnea, PND, Peripheral Edema, Palpitations, Lightheadedness, Dizziness, Near Syncope, Syncope Respiratory: Denies: Cough, Sputum Production, Hemoptysis Gastrointestinal: Denies: Hematemesis, Hematochezia, Melena Genitourinary: Denies: Dysuria, Hematuria Skin: Denies: Rash Objective: Vital Signs Temp Pulse Resp BP Pulse Ox 97.8 F 86 16 164/82 H 95 03/02/18 07:20 03/02/18 07:26 03/02/18 07:20 03/02/18 07:20 03/02/18 07:20 Oxygen Delivery Method Room Air Weight: 102.4 kg Body Mass Index (BMI) 34.2 Intake and Output for Last 24 Hours 02/28/18 03/01/18 03/02/18 23:59 23:59 23:59 Intake Total 480 / 480 1380 / 1380 Output Total 1000 / 1000 1300 / 1300 Balance -520 / -520 80 / 80 General: Awake, Alert, Oriented x 3 Neck: No JVD Chest Wall: Midline Sternotomy Incision Lungs: Clear to auscultation Cardiovascular: Regular Rhythm, No Murmurs Vascular: L Carotid Artery Bruits Abdomen: Bowel Sounds Present, Soft, Non Tender, No HSM, No Organomegaly Extremities: No Cyanosis, No edema 03/02/18 05:38: WBC 6.8, RBC 4.46 L, Hgb 13.8, Hct 41.0, MCV 91.9, MCH 30.9, MCHC 33.7, RDW 13.5, RDW Differential 44.6 H, Plt Count 145 L, MPV 11.2, Immature Gran % (Auto) 0.100, Neut % (Auto) 65.4, Lymph % (Auto) 18.1 L, Gibson % (Auto) 13.3 H, Eos % (Auto) 2.8, Baso % (Auto) 0.3, Absolute Neuts (auto) 4.5, Total Counted Not Reportable 03/02/18 05:38: Sodium 141, Potassium 4.1, Chloride 106, Carbon Dioxide 26.0, Anion Gap 9, BUN 17, Creatinine 1.01, Est GFR (MDRD) Af Amer 93, Est GFR (MDRD) Non-Af 77, BUN/Creatinine Ratio 16.8, Glucose 124 H, Calcium 9.6 Rhythm: EKG: Sinus, narrow QRS. ECHO: Reportedly abnormal, LVEF: 25-30%. Stress Test: Cardiac Cath: PCI: CT Surgery: Holter monitor: EPS: PPM: CXR: Chest CT Scan: Assessment/Plan Chronic CHF, class 1, ischemic CMP. Low EF, probably ischemic, History of AVILA, leg swelling for at least 10 years, followed up at [facility]. CAD, 4 or 5 Vessel CABG, about 20 years ago, no Angina, no arrhythmia, no caths since CABG, according to the patient. PAD, RCA endarterectomy a year ago. Chronic occlusion of Left ICA. S/P Fem-Pob bypass, ? years ago. Recent recurrent CVA, lacunar infarct, subacute findings on MRI. Morbid obesity, possible sleep apnea. HTN, essential, well controlled. Bladder CA, with on going BCG treatment. Recommendation: 1. Continue current treatment for ISchemic CMP, well compensated chronic CHF. 2. FU with metal work duct installer at [place] in 2-3 weeks, re Low EF, need for ICD. 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
[2018-03-02] MEDS: Aspirin 81 MG TAB.CHEW PO (10:17)
[2018-03-02] MEDS: Docusate Sodium 100 MG Capsule PO (10:17)
[2018-03-02] MEDS: Bisacodyl 5 MG Tablet PO (10:17)
[2018-03-02] MEDS: Multivitamins,Ther W-Minerals Tablet 1 TABLET PO (10:17)
[2018-03-02] MEDS: Clopidogrel Bisulfate 75 MG Tablet PO (10:18)
[2018-03-02] MEDS: Latanoprost 0.005% 1 Bottle 1 DRP EACH EYE (10:20)
[2018-03-02] MEDS: Heparin Injection (Vial) 5,000 UNIT/ML VIAL 5000 UNIT SC (10:21)
--- NOTE | 2018-03-02 11:04 | DCINST_ITS ---
- Discharge Diagnoses Current Active Problems: Current Active and Chronic Problems Stroke (Acute) ICAO (internal carotid artery occlusion) (Chronic) Hyperlipidemia (Chronic) Hypertension (Chronic) Carotid artery disease (Chronic) Bladder cancer (Chronic) CAD (coronary artery disease) (Chronic) Glaucoma (Chronic) Obesity (Chronic) You will use the following diet at home:: Cardiac Discharge Activity: Return to Normal Activity, Use Walker Call your doctor if you observe: Numbness or Tingling, Shortness of breath, Dizziness, Chest pain Allergies/Adverse Reactions: Allergies quinapril [From Accupril] Adverse Reaction (Verified 02/28/18 10:29) Other COUGH Medications to take at Discharge Aspirin E.C. [Ecotrin] 81 mg PO DAILY@0800 02/28/18 Brimonidine Tartrate/Timolol [Combigan 0.2%-0.5% Eye Drops] 1 drop LEFT EYE BID 02/28/18 Latanoprost/Pf [Latanoprost 0.005% Eye Drop] 1 drop EACH EYE DAILY 02/28/18 Losartan Potassium [Cozaar] 50 mg PO DAILY 02/28/18 Metoprolol Succinate [Toprol Xl] 100 mg PO DAILY 02/28/18 Multivitamin [Daily Multiple Vitamin] 1 tablet PO DAILY 02/28/18 Nitroglycerin [Nitrostat] 0.4 mg SL PRN PRN 02/28/18 Pravastatin [Pravachol] 80 mg PO QHS 02/28/18 Vit C/E/Zn/Coppr/Lutein/Zeaxan [Preservision Areds 2 Softgel] 1 capsule PO DAILY 02/28/18 Clopidogrel Bisulfate [Plavix] 75 mg PO DAILY tablet 03/02/18 Docusate Sodium [Colace] 100 mg PO BID capsule 03/02/18 Orders to be completed after discharge: 30-Day Event Recorder [[facility]] Location: None Selected Primary Care Physician: William Sweet III, MD [Primary Care Provider] - Please follow up with your Primary Care Physician in: 1 Week following DC from Rehab Test Results: Test results from this visit will be discussed in further detail at your follow- up appointment, if applicable. Please Follow Up With: Chalino Victoria MD When: 1-2 Weeks following DC from Rehab Proposed Discharge Date: 03/02/18
--- NOTE | 2018-03-02 11:08 | PCM.DC.SUM ---
<Ilene Varma - Last Filed: 03/02/18 11:27> Discharge Date and Diagnosis Date of Admission: 02/28/18 Date of Discharge: 03/02/18 - Primary Discharge Diagnosis Active and Suspected Problems 1. Left HOUSEKEEPER HEAD stroke 2. Chronic left ICA occlusion 3. Debility secondary to #1 - Secondary Discharge Diagnosis Chronic Problems ICAO (internal carotid artery occlusion) (Chronic) Hyperlipidemia (Chronic) Hypertension (Chronic) Carotid artery disease (Chronic) Bladder cancer (Chronic) CAD (coronary artery disease) (Chronic) Glaucoma (Chronic) Obesity (Chronic) Hospital Course and Treatment Imaging Results: Diagnostic Data Chest X-Ray 02/28/18 11:03 IMPRESSION: No acute abnormality is seen. Electronically Signed: Chapo Richard MD at 12:33 EDT Tel [phone], Service support , Head CTA 02/28/18 11:03 IMPRESSION: Normal chilkat of [place] without a demonstrated aneurysm or hemodynamically significant stenosis. Occluded left ICA Electronically Signed: Terrence Dumont MD at 12:20 EDT , Service support , Neck CTA 02/28/18 11:03 IMPRESSION: Occlusion of the left ICA at its origin Minimal peripheral atherosclerotic plaque in the left common carotid artery bulb 50% stenosis of the right ICA just distal to its origin No suspicious airway narrowing or deviation. No acute inflammation. Electronically Signed: Terrence Dumont MD at 12:24 EDT , Service support , Brain MRI 03/01/18 20:15 IMPRESSION: 1. Subacute cortical based ischemic infarct along the left lingual gyrus, left parahippocampus and left hippocampus. 2. Subacute lacunar ischemic infarct in the left thalamus. Electronically Signed: Oliver Dia MD at 8:57 EDT , Service support , Dr. Victoria- Neurology Dr. Shelby- Cardiology Operations: None Procedures: 2-D Echocardiogram Summary of Care Provided: The patient is a 72 year old M admitted 02/28/2018 due to right-sided numbness, weakness, right vision changes. 1. Left HOUSEKEEPER HEAD stroke- Head CTA showed chronic occluded left ICA. No other significant stenosis. Next CTA showed 50% stenosis right ICA. MRI of brain showed subacute cortical based ischemic infarct of the left lingual gyrus, left para hippocampus and left hippocampus. Subacute lacunar ischemic infarct in the left thalamus. Change home Pravachol regimen to Lipitor 80 mg p.o. nightly. Continue aspirin 81 mg and Plavix 75 mg, dual antiplatelet therapy for 3 months. Patient can then resume Plavix only. Echocardiogram showed an EF of 30%, mildly dilated aortic root. Cardiology evaluated patient. Recommended continued medical management and outpatient follow-up. Fasting lipid panel and hemoglobin A1c within normal limits. 30-day event recorder at discharge. Rehab at discharge for further PT/OT. 2. Carotid artery disease-chronic left ICA occlusion. History of right carotid endarterectomy May 2017. Continue aspirin, statin. 3. CAD status post CABG-continue aspirin, statin, metoprolol. Denies chest pain. Patient reports normal stress test in October 2016. 4. Bladder cancer-currently undergoing BCG treatment. 5. PVD-continue aspirin, statin. 6. Open-angle glaucoma-resume home ophthalmic regimen. 7. Obesity-encourage diet and lifestyle modifications. 8. Hypertension-resume home losartan and metoprolol regimen at discharge. 9. Hyperlipidemia-continue high-dose statin. 10. Elevated glucose on admission- hemoglobin A1c 5.7%. 11. History of aortofemoral bypass General: Alert, Oriented x3, Cooperative, No apparent distress HEENT: Atraumatic, PERRLA, EOMI, Normocephalic, - - Right eye peripheral deficit Neck: Supple, No JVD, Negative Carotid Bruits Lungs: Clear to auscultation, Diminished Cardiovascular: Regular rate, Regular Rhythm, Normal S1, Normal S2, No murmurs Abdomen: Bowel Sounds Present, Soft, Non Tender, Non-Distended Extremities: No clubbing, No cyanosis, No edema, Capillary Refill Less than 3 Seconds Skin: No rashes, No breakdown Musculoskeletal: No Tenderness to Palpation of Joints or Extremities Neurological: Cranial nerves II-XII grossly intact, - - RUE/RLE sensory deficit and ataxia. Right hemianopia. Strength equal bilaterally. Psych/Mental Status: Normal Affect, Appropriate Patient seen exam prior to discharge. Physical assessment as noted above. Patient stable for discharge to rehab unit. This patient was seen by JOSEPH Moran under the supervision of Dr. Clayton. Discharge Diet: Low fat/ Low Cholesterol Discharge Activity: Return to Normal Activity, Use Walker Call your doctor if you observe: Numbness or Tingling, Shortness of breath, Dizziness, Chest pain Home Medications: Medications to take at Discharge Aspirin E.C. [Ecotrin] 81 mg PO DAILY@0800 02/28/18 Brimonidine Tartrate/Timolol [Combigan 0.2%-0.5% Eye Drops] 1 drop LEFT EYE BID 02/28/18 Latanoprost/Pf [Latanoprost 0.005% Eye Drop] 1 drop EACH EYE DAILY 02/28/18 Losartan Potassium [Cozaar] 50 mg PO DAILY 02/28/18 Metoprolol Succinate [Toprol Xl] 100 mg PO DAILY 02/28/18 Multivitamin [Daily Multiple Vitamin] 1 tablet PO DAILY 02/28/18 Nitroglycerin [Nitrostat] 0.4 mg SL PRN PRN 02/28/18 Pravastatin [Pravachol] 80 mg PO QHS 02/28/18 Vit C/E/Zn/Coppr/Lutein/Zeaxan [Preservision Areds 2 Softgel] 1 capsule PO DAILY 02/28/18 Clopidogrel Bisulfate [Plavix] 75 mg PO DAILY tablet 03/02/18 Docusate Sodium [Colace] 100 mg PO BID capsule 03/02/18 Other Amb Orders: 30-Day Event Recorder [[facility]] Location: None Selected Primary Care Physician: William Sweet III, MD [Primary Care Provider] - Please follow up with your Primary Care Physician in: 1 Week following DC from Rehab Please Follow Up With: Chalino Victoria MD When: 1-2 Weeks following DC from Rehab Disposition: Inpt Rehab Unit/Facility Minutes spent on discharge:: 35 Patient Condition:: Stable Medical Necessity - Tobacco Use Smoking Status: Former smoker Tobacco Use: Non-smoker Meaningful Use Info Meaningful Use Diagnoses (Choose all that apply): Ischemic CVA - CVA Therapy Assessed for PT,OT and/or ST?: Yes - Ischemic Stroke Antithrombotic order at d/c?: Yes Dx of Atrial fib/flutter?: No Statins at discharge?: Yes Primary Dx Acute Ischemic CVA?: Yes IV tPA ordered during stay?: No Reason IV t-PA not ordered: Medical Contraindication <Joanna Clayton - Last Filed: 03/02/18 11:56> Discharge Date and Diagnosis - Secondary Discharge Diagnosis Chronic Problems ICAO (internal carotid artery occlusion) (Chronic) Hyperlipidemia (Chronic) Hypertension (Chronic) Carotid artery disease (Chronic) Bladder cancer (Chronic) CAD (coronary artery disease) (Chronic) Glaucoma (Chronic) Obesity (Chronic) Hospital Course and Treatment Summary of Care Provided: Assessment/Plan Patient seen by Ilene Varma nurse practitioner under my supervision. Patient seen and examined. He also complains of mild right upper extremity numbness but states is much better than previously. Right upper extremity weakness has improved significantly and is able to use his arm. He denies any blurred vision, shortness of breath chest pain, abdominal pain, diarrhea or vomiting. 12 point review of systems otherwise negative. Neurology on board. Head CT showed chronic left occluded ICA and a subacute left MCA stroke. He is being managed for subacute left MCA stroke. Patient is scheduled to be discharged today to rehab unit for intensive rehab. He is to have a 30 day looping event recorder is to follow-up with neurology. Patient was also evaluated by allergy on account of low EF picked up. Echo. EF was around 30%. Cardiology saw him and evaluated him as chronic systolic CHF class I likely due to ischemic cardiomyopathy. The recommendation is to continue current treatment and to follow-up with a make up editor at [facility] in 2-3 weeks. May benefit from ICD in light of low EF. o/e: Vital Signs Height 5 ft 8.11 in Weight: 225 lb 12.054 oz Weight in Pounds 225.8 lbs Pulse Ox 95 Temperature 97.8 F Pulse Rate 86 Respiratory Rate 16 Blood Pressure 164/82 Blood Pressure Position Semi-Fowlers General: Alert, Oriented x3, Cooperative, No apparent distress HEENT: Atraumatic, PERRLA, EOMI, Normocephalic, - - Right eye peripheral deficit Neck: Supple, No JVD, Negative Carotid Bruits Lungs: Clear to auscultation, Diminished Cardiovascular: Regular rate, Regular Rhythm, Normal S1, Normal S2, No murmurs Abdomen: Bowel Sounds Present, Soft, Non Tender, Non-Distended Extremities: No clubbing, No cyanosis, No edema, Capillary Refill Less than 3 Seconds Skin: No rashes, No breakdown Musculoskeletal: No Tenderness to Palpation of Joints or Extremities Neurological: Cranial nerves II-XII grossly intact, has some expressive aphasia. Power 5/5 in all extremities. Mild RUE nad RLE sensory deficit. Gait not checked. NIHSS today-5 Psych/Mental Status: Normal Affect, Appropriate Assessment and Plan 1. Acute right MCA stroke Neurology on board. On aspirin and Plavix. To continue dual antiplatelet therapy for 3 months and then to switch to Plavix alone. Neurology on board. Continue high intensity statin. 2D echocardiogram showed moderately dilated left ventricle with mild concentric left ventricular hypertrophy and moderate left ventricular systolic dysfunction with mild global right ventricular systolic dysfunction. Global longitudinal strain is 30% which is abnormal. MRI showed a subacute cortical based ischemic infarct of the left lingual gyrus and left upper hippocampus and left hippocampus with a subacute lacunar ischemic infarct in the left thalamus. A1C was 5.7. PT OT on board. Fasting lipid panel is also within normal limits. DC today with 30 day loop recorder being discharged to acute rehab facility. To follow up with make up editor at [facility] in 2-3 weeks. Agree with rest of Ilene RUIZ's note. Plan as stated above. Code Visit Inpatient E&M: 87499 Disch Hosp
[2018-03-02] MEDS: Metoprolol(XL)Succ 100 MG Tablet PO (12:38)
[2018-03-02] MEDS: Losartan Potassium 50 MG Tablet PO (12:38)
== END 2018-03-02 13:30 | DRG 65 ==
LOC: ED 15:35 → PCU 16:17
PROVIDERS: Admitting Provider Family Medicine; Emergency Provider Emergency Medicine; Family Provider Family Medicine; PCP Family Medicine; Visit Provider Student in an Organized Health Care Education/Training Program
DX: I63.532 Cerebral infarction due to unspecified occlusion or stenosis of left posterior cerebral artery (principal); I50.22 Chronic systolic (congestive) heart failure; R53.81 Other malaise; C67.9 Malignant neoplasm of bladder, unspecified; H53.461 Homonymous bilateral field defects, right side; R20.0 Anesthesia of skin; I25.10 Atherosclerotic heart disease of native coronary artery without angina pectoris; R27.0 Ataxia, unspecified; R29.703 NIHSS score 3; E78.5 Hyperlipidemia, unspecified; E66.9 Obesity, unspecified; H40.10X0 Unspecified open-angle glaucoma, stage unspecified; I65.22 Occlusion and stenosis of left carotid artery; I73.9 Peripheral vascular disease, unspecified; Z95.1 Presence of aortocoronary bypass graft; Z79.82 Long term (current) use of aspirin; Z87.891 Personal history of nicotine dependence; Z68.34 Body mass index [BMI] 34.0-34.9, adult; R73.9 Hyperglycemia, unspecified; I25.5 Ischemic cardiomyopathy; R29.705 NIHSS score 5; I11.0 Hypertensive heart disease with heart failure
CPT/HCPCS: 36415; 70496; 70498; 70551; 71045; 80048; 80061; 82962; 83036; 84484; 85025; 85610; 85730; 92507; 92523; 93005; 93306; 97110; 97162; 97166; 97535; 99283; Q9957; Q9967; A4216; C8929

== ENCOUNTER 2018-03-02 13:57 | Inpatient (IN) | payer MEDICARE, OTHER, SELFPAY ==
[2018-03-02 14:12] VITALS: BP 153/70; PULSE 88; RESP 17; TEMP 36.8; O2SAT 96; BMI 34.2
[2018-03-02 19:55] VITALS: BP 135/62; PULSE 88; RESP 16; TEMP 36.8; O2SAT 95
[2018-03-02 20:05] VITALS: BMI 34.2
[2018-03-02] MEDS: Docusate Sodium 100 MG Capsule PO (20:16)
[2018-03-02] MEDS: Pravastatin 80 MG Tablet PO (20:22)
[2018-03-02 21:42] VITALS: O2SAT 96
[2018-03-02 22:00] VITALS: RESP 18
[2018-03-03 06:28] LABS: Hematocrit 43.6 % (40-54); Hemoglobin 14.9 g/dl (13.0-16.5); Mean Corp Hgb Conc 34.2 g/gl (32-36); Mean Corpuscular Hgb 31.2 pg (27.0-32.0); Mean Corpuscular Volume 91.4 fL (80-94); Platelet Count 166 K/mm3 (150-450); RBC Distribution Width CV 13.6 % (11.6-14.6); RBC Distribution Width SD 44.8 fl (35.1-43.9); Red Blood Count 4.77 M/mm3 (4.6-6.2); White Blood Count 8.1 K/mm3 (4.4-11.0)
[2018-03-03 06:32] LABS: Scan Indicated on CBC? Y/N NO
[2018-03-03 06:43] LABS: Anion Gap 12 (5-15); BUN 14 mg/dL (7-18); BUN/Creat Ratio 12.4 RATIO (10-20); Calcium,Total 9.2 mg/dL (8.5-10.1); Chloride 105 mmol/L (98-107); Creatinine, Serum 1.13 mg/dL (0.70-1.30); EST Glomerular Filtration Rate 67 mL/min (>60); Est Glom Filt Rate - Afr Amer 82 mL/min (>60); Estimated Creatinine Clearance 56.33 ml/min; Glucose 133 mg/dL (74-106); Potassium 4.3 mmol/L (3.5-5.1); Sodium Level 139 mmol/L (136-145)
[2018-03-03 07:05] VITALS: O2SAT 95
[2018-03-03 07:19] VITALS: BP 154/87; PULSE 82; RESP 18; TEMP 36.7; O2SAT 97
[2018-03-03] MEDS: Latanoprost 0.005% 1 Bottle 1 DRP EACH EYE (07:54)
[2018-03-03] MEDS: Docusate Sodium 100 MG Capsule PO ×2 (07:54→19:58)
[2018-03-03] MEDS: Enoxaparin 40 MG/0.4 ML Syringe SC (07:54)
[2018-03-03 07:55] VITALS: PULSE 82
[2018-03-03] MEDS: Clopidogrel Bisulfate 75 MG Tablet PO (07:55)
[2018-03-03] MEDS: Losartan Potassium 50 MG Tablet PO (07:55)
[2018-03-03] MEDS: Metoprolol(XL)Succ 100 MG Tablet PO (07:55)
[2018-03-03] MEDS: Aspirin E.C. 81 MG Tablet PO (07:55)
[2018-03-03] MEDS: Multivitamins,Therapeutic Tablet 1 TABLET PO (07:56)
[2018-03-03 10:45] VITALS: BMI 34.2
--- NOTE | 2018-03-03 11:15 | NURSING ---
patient ambulated > 150ft x min assist and w/c follow d/t slight unsteadiness.
--- NOTE | 2018-03-03 11:33 | HP.PCM_ITS ---
History of Present Illness Date of Admission: 03/02/18 Chief Complaint: Debility The patient is a 72 year old M admitted to the rehab unit. 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 He is improved, workup was otherwise negative and he has been admitted to the rehab unit for rehabilitation in order to return home. He lives at home with his in a one-story house. He is previously functionally independent. He has no GI or complaints, denies insomnia and is tolerating therapies thus far. His primary complaint now is decreased memory. He notes that he has trouble remembering people's names and birthdates. Per admission H&P: The patient is a 72 year old M who presents to the Emergency Room due to right sided numbness and weakness and associated loss of peripheral vision right side. Patient states this began approximately 4am this morning. He denies speech changes, facial droop, difficulty swallowing. Symptoms have improved since arriving to ER. Continues to have right-sided numbness. Denies significant right-sided weakness. States he has history of TIA. Denies history of stroke. States he was previously on aspirin which she stopped taking 3 months ago. Does not follow with neurology. Patient notes he has chronic vision changes due to glaucoma however his right peripheral vision seems to be worsened since this morning. He denies chest pain, shortness of breath. He has a past medical history of TIA, left ICA occlusion, right CEA, hypertension, hyperlipidemia, bladder cancer currently undergoing BCG treatment , CAD status post CABG, PVD, open-angle glaucoma, obesity. Past Medical History Past Medical History (Chronic Problems): Chronic Problems ICAO (internal carotid artery occlusion) (Chronic) Hyperlipidemia (Chronic) Hypertension (Chronic) Carotid artery disease (Chronic) Bladder cancer (Chronic) CAD (coronary artery disease) (Chronic) Glaucoma (Chronic) Obesity (Chronic) Allergies quinapril [From Accupril] Adverse Reaction (Verified 02/28/18 10:29) Other COUGH Home Medications: Ambulatory Orders Medication Instructions Recorded Aspirin E.C. [Ecotrin] 81 mg PO DAILY@0800 02/28/18 Brimonidine Tartrate/Timolol 1 drop LEFT EYE BID 02/28/18 [Combigan 0.2%-0.5% Eye Drops] Latanoprost/Pf [Latanoprost 0.005% 1 drop EACH EYE DAILY 02/28/18 Eye Drop] Losartan Potassium [Cozaar] 50 mg PO DAILY 02/28/18 Metoprolol Succinate [Toprol Xl] 100 mg PO DAILY 02/28/18 Multivitamin [Daily Multiple 1 tablet PO DAILY 02/28/18 Vitamin] Nitroglycerin [Nitrostat] 0.4 mg SL PRN PRN 02/28/18 Pravastatin [Pravachol] 80 mg PO QHS 02/28/18 Vit C/E/Zn/Coppr/Lutein/Zeaxan 1 capsule PO DAILY 02/28/18 [Preservision Areds 2 Softgel] Clopidogrel Bisulfate [Plavix] 75 mg PO DAILY 03/02/18 Docusate Sodium [Colace] 100 mg PO BID 03/02/18 Surgical History: - - CABG, aortofemoral bypass, right carotid endarterectomy, bladder tumor resection. Psychiatric History: No pertinent psych hx Smoking Status: Former smoker - *Family History Maternal History Items: Heart Disease, Hypertension Paternal History Items: Cancer - Prostate Review of Systems Constitutional: Denies: Chills, Fever, Weight Change HEENT: Denies: Head Aches, Sinus Congestion, Sinus Drainage Cardiovascular: Denies: Chest Pain, Palpitations Respiratory: Denies: Cough, Shortness of breath at rest, Sputum production Gastrointestinal: Denies: Abdominal Pain, Nausea, Vomiting Genitourinary: Denies: Dysuria Musculoskeletal: Denies: Joint Pain, Joint Tenderness Skin: Denies: Rash, Wounds Neurological: Denies: Numbness, Tingling, Focal weakness Psychiatric: Denies: Anxiety, Depression, Homicidal Ideations, Suicidal Ideations Hematologic/ Lymphatic: Denies: Easy Bruising, Easy Bleeding VTE Information - Inpt Only VTE Present on Admission: Yes VTE Pharm Prophylaxis ordered?: Yes - Physical Exam General: Alert, Oriented x3, Cooperative, No apparent distress Neurological: Cranial nerves II-XII grossly intact Psych/Mental Status: Normal Affect Vital Signs Temp Pulse Resp BP Pulse Ox 36.7 C 82 18 154/87 H 97 03/03/18 07:19 03/03/18 07:55 03/03/18 07:19 03/03/18 07:19 03/03/18 07:19 Oxygen Delivery Method Room Air Weight: 102.4 kg Body Mass Index (BMI) 34.2 Finger Stick Blood Glucose 127 Intake and Output for Last 24 Hours 03/01/18 03/02/18 03/03/18 23:59 23:59 23:59 Intake Total 240 / 240 200 / 200 Output Total 500 / 500 Balance 240 / 240 -300 / -300 Laboratory Tests Past 24 Hrs 03/03/18 03/03/18 06:10 06:10 WBC 8.1 RBC 4.77 Hgb 14.9 Hct 43.6 MCV 91.4 MCH 31.2 MCHC 34.2 RDW 13.6 RDW Differential 44.8 H Plt Count 166 MPV 11.0 Sodium 139 Potassium 4.3 Chloride 105 Carbon Dioxide 22.0 Anion Gap 12 BUN 14 Creatinine 1.13 Estim Creat Clear Calc 56.33 Est GFR (MDRD) Af Amer 82 Est GFR (MDRD) Non-Af 67 BUN/Creatinine Ratio 12.4 Glucose 133 H Calcium 9.2 Current Medications Generic Name Dose Route Start Last Admin Trade Name Freq PRN Reason Stop Dose Admin Aspirin 81 mg 03/03/18 08:00 03/03/18 07:55 Ecotrin PO 81 mg DAILY@0800 ORA Administration Bisacodyl 10 mg 03/02/18 15:47 Dulcolax RECTAL .PRN X 1 PRN Constipation Brimonidine Tartrate 1 drop 03/02/18 22:00 03/03/18 08:05 Combigan Eye Drops LEFT EYE 1 drop BID ORA Administration Clopidogrel Bisulfate 75 mg 03/03/18 10:00 03/03/18 07:55 Plavix PO 75 mg DAILY ORA Administration Docusate Sodium 100 mg 03/02/18 22:00 03/03/18 07:54 Colace PO 100 mg BID ORA Administration Enoxaparin Sodium 40 mg 03/03/18 10:00 03/03/18 07:54 Lovenox SC 40 mg DAILY ORA Administration Latanoprost 1 drop 03/03/18 10:00 03/03/18 07:54 Xalatan Opthalmic EACH EYE 1 drop DAILY ORA Administration Losartan Potassium 50 mg 03/03/18 10:00 03/03/18 07:55 Cozaar PO 50 mg DAILY ORA Administration Magnesium Hydroxide 30 ml 03/02/18 15:47 Milk Of Magnesia PO .PRN X 1 PRN Constipation Metoprolol Succinate 100 mg 03/03/18 10:00 03/03/18 07:55 Toprol Xl (Beta Carlos) PO 100 mg DAILY ORA Administration Multivitamins 1 tablet 03/03/18 08:00 03/03/18 07:56 Multivitamin PO 1 tablet DAILY@0800 ORA Administration Multivitamins/Minerals 1 tablet 03/03/18 10:00 03/03/18 07:58 Healthy Eyes PO 1 tablet DAILY ORA Administration Nitroglycerin 0.4 mg 03/02/18 15:44 Nitrostat SUBLINGUAL Q5M PRN CHEST PAIN Pravastatin Sodium 80 mg 03/02/18 22:00 03/02/18 20:22 Pravachol PO 80 mg QHS ORA Administration Assessment/Plan All Active Problems Stroke (Acute) Debility due to left PRINCIPAL SYSTEMS ENGINEER distribution infarct. Goal of rehab is hoahaoism of prior level functional independence. Plan: Physical therapy for gait and balance Occupational Therapy for ADLs Speech therapy DVT prophylaxis: Lovenox Bowel protocol As needed analgesics Bladder cancer: Continue as needed self catheterizations Glaucoma: Continue eyedrops
--- NOTE | 2018-03-03 13:01 | PCM.RU.PYE ---
Admission Information Status Changes from Prescreening?: No changes Identified Actual Problem List:: Pain, ALteration in Cmfrt, Cognitve Impr/Memory Loss, Bladder Incontinence, BP, Hypertension, Ineffect.D/C Plan r/t Psy Potential Problem List:: DVT, Bleeding, Infection, UTI, Aspiration, Falls, Skin Integrity, Depression Risk of Complications DVT: LMWH, JEAN Hose, Sequential Compression Device Bleeding: Monitor Lab Values, Nursing to Teach Precautions for anti-coagulation therapy., Wound, if applicable, to be assessed every shift., Stroke patients assessed for lethargy or change in status. Infection: Clinical Staff to Monitor for S/S of infection:, S/S of infection include fever, redness, warmth, etc. Urinary Tract Infection: Monitor for frequency, burning, discomfort, or incontinence., Nursing will obtain urine sample for urinalysis and C&S when ordered. Aspiration: Clinical staff will monitor for coughing, drooling, congestion., Speech will evaluate swallowing and dsyphasia., Nursing will monitor patient swallowing during meals. Falls: Patient will be evaluated for Fall Precautions, Patient will be placed on Fall Precautions as indicated per protocol. Skin Breakdown: Nursing will assess skin daily using assessment tool., Nursing will place on Skin Breakdown Precautions as indicated. Pain: Clinical staff will assess patient's pain level per protocol., Medications will be given, if needed, and the pain level reassessed., Other methods: Massage, distraction, decrease stimulus, etc. used PRN. Plan of Care Patient requires physician specializing in physical medicine and rehab oversight to provide close medical supervision of rehab issues including: Pain Management, Sleep Problems, Bowel and Bladder, Medical and co-morbidity Management, DVT prophylaxis, Rehabilitation Leadership, Coordination of treatment team Patient needs Physical Therapy: For a minimum of 1 hour, At least 5 out of 7 days Patient needs Physical Therapy to improve:: Mobility, Mobility, Mobility, Strengthening, Transfers, Stretching, ROM, Endurance, Stairs, Gait, Balance Patient needs Occupational Therapy: For a minimum of 1 hour, At least 5 out of 7 days Patient needs Occupational Therapy to improve ADL's incl.: Eating, Grooming, Bathing, Dressing, Toileting, Toilet transfers, Community Reintegration, Higher functioning activities, Household tasks, Adaptive Equipment, Splinting, Other activities as determined Patient requires speech therapy: For a minimum of 1 hour, At least 5 out of 7 days Patient requires speech therapy for: Swallowing, Cognition, Language Skills, Compensatory Strategies Patient requires 24/ Rehabilitation Nursing for: Pain Issues, Identifying and preventing risk factors, Monitoring and reporting current medical conditions, Assisting with ambulation, transfer, and all ADL's, Teaching patients about disease process and medications, Family teaching, Providing safe environment, Bowel and Bladder Issues, Skin integrity, Medication Management Patient needs Microfiche Duplicator/ Case Management for: Discharge Planning, Arranging Home Equipment or Services, Family Interventions Patient needs Dietary and Nutrition Services for: Adequate Nutrition, Nutritional Supplements, Nutritional Education Goals Patient will remain: free from falls, or injury at time of discharge. Patient will perform bed mobility at: MOD I level of assist. Patient will complete transfers from bed to chair at: MOD I level of assist. Patient will ambulate: 100 feet, with MOD I assist, with LRD Patient will complete upper body dressing at: MOD I level of assist. Patient will complete lower body dressing at: MOD I level of assist. Patient will complete toileting at: MOD I level of assist. Patient will perform bathing at: MOD I level of assist. Patient will complete grooming at: MOD I level of assist. Patient will complete home management skills at: MOD I level of assist. Patient will achieve: 12 stairs, at MOD I assist Patient will have pain level of: of 3 or less Patient's skin will: remain intact, free from infection. Patient will receive: adequate nutrition. Discharge Planning Pt Prognosis for Sig. Practical Improv. w/in Reasonable Time: Good Anticipated D/C Destination: Home with Outpt Therapy Was Preadmission Assessment Accurate?: Yes
--- NOTE | 2018-03-03 15:56 | PCM.PN.HOSP ---
Subjective: Patient is a 72-year-old male admitted to the rehab unit for [facility] PCU for rehab. 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 He remained stable and was discharged to rehab. Hospitalist service was consulted for medical management. Patient seen and examined. He complains of numbness over his right arm and the sole of his left foot which was present when he was admitted with a stroke. He states is gradually gotten better but is still present. He denies any fever chills, cough or chest pain, shortness of breath, abdominal pain, diarrhea vomiting. Point review of systems otherwise negative. Vitals/I&O's: Vital Signs Temp Pulse Resp BP Pulse Ox 98.0 F 82 18 154/87 H 97 03/03/18 07:19 03/03/18 07:55 03/03/18 07:19 03/03/18 07:19 03/03/18 07:19 Oxygen Delivery Method Room Air Weight: 225 lb 12.054 oz Body Mass Index (BMI) 34.2 Finger Stick Blood Glucose 127 Intake and Output for Last 24 Hours 03/01/18 03/02/18 03/03/18 23:59 23:59 23:59 Intake Total 240 / 240 440 / 440 Output Total 500 / 500 Balance 240 / 240 -60 / -60 General: Alert, Oriented x3, Cooperative, No apparent distress HEENT: Atraumatic, PERRLA, EOMI, Normocephalic Oral: Moist Mucosa Neck: Supple, No JVD, Negative Carotid Bruits Lungs: Clear to auscultation, Normal air movement, No rhonchi, No wheeze, No rales Cardiovascular: Regular rate, Regular Rhythm, Normal S1, Normal S2, No murmurs Abdomen: Bowel Sounds Present, Soft, Non Tender, Non-Distended, No Hepato-splenomegaly Extremities: No clubbing, No cyanosis, No edema, Capillary Refill Less than 3 Seconds Skin: No rashes, No breakdown Musculoskeletal: No Tenderness to Palpation of Joints or Extremities Lymphatic: No Cervical, Supraclavicular, or Inguinal Adenopathy Neurological: Cranial nerves II-XII grossly intact, Motor Exam 5/5 strength throughout, - - Mildly decreased sensation to light touch over right upper extremity. Psych/Mental Status: Normal Affect, Appropriate, Alert and oriented to time, place, person, mood and affect Laboratory Results 03/03/18 06:10: WBC 8.1, RBC 4.77, Hgb 14.9, Hct 43.6, MCV 91.4, MCH 31.2, MCHC 34.2, RDW 13.6, RDW Differential 44.8 H, Plt Count 166, MPV 11.0 03/03/18 06:10: Sodium 139, Potassium 4.3, Chloride 105, Carbon Dioxide 22.0, Anion Gap 12, BUN 14, Creatinine 1.13, Estim Creat Clear Calc 56.33, Est GFR (MDRD) Af Amer 82, Est GFR (MDRD) Non-Af 67, BUN/Creatinine Ratio 12.4, Glucose 133 H, Calcium 9.2 Current Medications Aspirin (Ecotrin) 81 mg PO DAILY@0800 [facility] Last Admin: 03/03/18 07:55 Dose: 81 mg Bisacodyl (Dulcolax) 10 mg RECTAL .PRN X 1 PRN PRN Reason: Constipation Brimonidine Tartrate (Combigan Eye Drops) 1 drop LEFT EYE BID [facility] Last Admin: 03/03/18 08:05 Dose: 1 drop Clopidogrel Bisulfate (Plavix) 75 mg PO DAILY [facility] Last Admin: 03/03/18 07:55 Dose: 75 mg Docusate Sodium (Colace) 100 mg PO BID [facility] Last Admin: 03/03/18 07:54 Dose: 100 mg Enoxaparin Sodium (Lovenox) 40 mg SC DAILY [facility] Last Admin: 03/03/18 07:54 Dose: 40 mg Latanoprost (Xalatan Opthalmic) 1 drop EACH EYE DAILY [facility] Last Admin: 03/03/18 07:54 Dose: 1 drop Losartan Potassium (Cozaar) 50 mg PO DAILY [facility] Last Admin: 03/03/18 07:55 Dose: 50 mg Magnesium Hydroxide (Milk Of Magnesia) 30 ml PO .PRN X 1 PRN PRN Reason: Constipation Metoprolol Succinate (Toprol Xl (Beta Carlos)) 100 mg PO DAILY [facility] Last Admin: 03/03/18 07:55 Dose: 100 mg Multivitamins (Multivitamin) 1 tablet PO DAILY@0800 [facility] Last Admin: 03/03/18 07:56 Dose: 1 tablet Multivitamins/Minerals (Healthy Eyes) 1 tablet PO DAILY [facility] Last Admin: 03/03/18 07:58 Dose: 1 tablet Nitroglycerin (Nitrostat) 0.4 mg SUBLINGUAL Q5M PRN PRN Reason: CHEST PAIN Pravastatin Sodium (Pravachol) 80 mg PO QHS [facility] Last Admin: 03/02/18 20:22 Dose: 80 mg Medical Necessity - Tobacco Use Smoking Status: Former smoker Assessment/Plan All Active Problems Stroke (Acute) 1. LEft subacute MCA stroke presented with loss of vision in right eye and right sided numbness CT showed chronic occluded left ICA nad 50% stenosis of right ICA MRI showed subacute cortical ischemic infarct of left lingual gyrus, left parahippocamus and left hippocampus, as well as subacute ishcemic infarct in left thalamus on lipitor 80mg qhs, aspirin 81mg daily, plavix 75mg daily. management as per neuro PT/OT on board 2. CAD and PAD: s/p carotid endarterecdtomy 05/18. Also s/o CABG. on aspirin, plavix and statin as well as metoprolol. 3. Open angle glaucoma: on brimonidine and latanoprost eye drops 4. Hyperlipidemia: on high intensity statin. 5. History of bladder cancer: s/p treatment. In remission. DVT prophylaxis: lovenox This note was generated with [employer] dictation software. It may contain incorrect words, spelling, and punctuation that were not noted in checking the note before signing. Code Visit Inpatient E&M: 32102 Subs Hosp L2
[2018-03-03 19:34] VITALS: BP 139/64; PULSE 72; RESP 18; TEMP 37.1; O2SAT 95
[2018-03-03] MEDS: Pravastatin 80 MG Tablet PO (19:59)
[2018-03-04 02:29] VITALS: BMI 34.2
--- NOTE | 2018-03-04 03:23 | NURSING ---
REVIEWED AND AGREE WITH COATER SMOKING PIPE'S FIM AND HANDOFF CHARTING.
[2018-03-04 06:45] VITALS: O2SAT 95
[2018-03-04 07:10] VITALS: BP 148/80; PULSE 72; RESP 18; TEMP 36.6; O2SAT 98
[2018-03-04] MEDS: Enoxaparin 40 MG/0.4 ML Syringe SC (07:11)
[2018-03-04 07:12] VITALS: PULSE 72
[2018-03-04] MEDS: Metoprolol(XL)Succ 100 MG Tablet PO (07:12)
[2018-03-04] MEDS: Docusate Sodium 100 MG Capsule PO ×2 (07:12→21:39)
[2018-03-04] MEDS: Losartan Potassium 50 MG Tablet PO (07:12)
[2018-03-04] MEDS: Latanoprost 0.005% 1 Bottle 1 DRP EACH EYE (07:12)
[2018-03-04] MEDS: Aspirin E.C. 81 MG Tablet PO (07:12)
[2018-03-04] MEDS: Clopidogrel Bisulfate 75 MG Tablet PO (07:12)
[2018-03-04] MEDS: Multivitamins,Therapeutic Tablet 1 TABLET PO (07:13)
[2018-03-04 09:52] VITALS: BMI 34.2
[2018-03-04 18:46] VITALS: BP 133/74; PULSE 75; RESP 18; TEMP 36.6; O2SAT 96
[2018-03-04 21:37] VITALS: BMI 34.2
[2018-03-04] MEDS: Pravastatin 80 MG Tablet PO (21:39)
--- NOTE | 2018-03-05 00:44 | NURSING ---
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 Pt family stated that pt wanted a cup of coffee. Pt assisted with coffee and redirected back to room. Pt informed that safety measures in place per policy for Rehab Unit and pt well being.
[2018-03-05] MEDS: Enoxaparin 40 MG/0.4 ML Syringe SC (06:37)
[2018-03-05 07:52] VITALS: PULSE 70
[2018-03-05] MEDS: Aspirin E.C. 81 MG Tablet PO (07:52)
[2018-03-05] MEDS: Multivitamins,Therapeutic Tablet 1 TABLET PO (07:52)
[2018-03-05] MEDS: Metoprolol(XL)Succ 100 MG Tablet PO (07:52)
[2018-03-05] MEDS: Losartan Potassium 50 MG Tablet PO (07:52)
[2018-03-05] MEDS: Docusate Sodium 100 MG Capsule PO ×2 (07:52→21:52)
[2018-03-05] MEDS: Clopidogrel Bisulfate 75 MG Tablet PO (07:52)
[2018-03-05 08:26] VITALS: BP 138/67; PULSE 89; RESP 18; TEMP 36.5; O2SAT 96
--- NOTE | 2018-03-05 09:38 | PCM.PN.NEU ---
Subjective: Patient seen and examined. No acute events overnight per nursing staff. Patient tolerating therapy, states the vision in his right eye is improving, he has some tingling in his right leg and arm, which is an improvement from the numbness he was experiencing. He does still have numbness over his right triceps area and the sole of his left foot which was present when he was admitted with his stroke. Tolerating regular diet, no issues with GI/. - Physical Exam General: Alert, Oriented x3, Cooperative HEENT: Atraumatic, PERRLA, EOMI, Normocephalic Neck: Supple, No JVD, Negative Carotid Bruits Lungs: Clear to auscultation, Normal air movement Cardiovascular: Regular rate, No murmurs Abdomen: Bowel Sounds Present, Soft, Non Tender Extremities: No edema, Capillary Refill Less than 3 Seconds Skin: No rashes, No breakdown Musculoskeletal: No Tenderness to Palpation of Joints or Extremities Neurological: Cranial nerves II-XII grossly intact Psych/Mental Status: Normal Affect, Appropriate, Alert and oriented to time, place, person, mood and affect Vital Signs Temp Pulse Resp BP Pulse Ox 97.7 F L 89 18 138/67 H 96 03/05/18 08:26 03/05/18 08:26 03/05/18 08:26 03/05/18 08:26 03/05/18 08:26 Oxygen Delivery Method Room Air Weight: 102.4 kg Body Mass Index (BMI) 34.2 Finger Stick Blood Glucose 127 Intake and Output for Last 24 Hours 03/03/18 03/04/18 03/05/18 23:59 23:59 23:59 Intake Total 440 / 440 Output Total 1200 / 1200 Balance -760 / -760 Active Medications Aspirin (Ecotrin) 81 mg PO DAILY@0800 [facility] Last Admin: 03/05/18 07:52 Dose: 81 mg Bisacodyl (Dulcolax) 10 mg RECTAL .PRN X 1 PRN PRN Reason: Constipation Brimonidine Tartrate (Combigan Eye Drops) 1 drop LEFT EYE BID [facility] Last Admin: 03/05/18 07:52 Dose: 1 drop Clopidogrel Bisulfate (Plavix) 75 mg PO DAILY [facility] Last Admin: 03/05/18 07:52 Dose: 75 mg Docusate Sodium (Colace) 100 mg PO BID [facility] Last Admin: 03/05/18 07:52 Dose: 100 mg Enoxaparin Sodium (Lovenox) 40 mg SC DAILY@0600 [facility] Last Admin: 03/05/18 06:37 Dose: 40 mg Latanoprost (Xalatan Opthalmic) 1 drop EACH EYE DAILY [facility] Last Admin: 03/04/18 07:12 Dose: 1 drop Losartan Potassium (Cozaar) 50 mg PO DAILY [facility] Last Admin: 03/05/18 07:52 Dose: 50 mg Magnesium Hydroxide (Milk Of Magnesia) 30 ml PO .PRN X 1 PRN PRN Reason: Constipation Metoprolol Succinate (Toprol Xl (Beta Carlos)) 100 mg PO DAILY [facility] Last Admin: 03/05/18 07:52 Dose: 100 mg Multivitamins (Multivitamin) 1 tablet PO DAILY@0800 [facility] Last Admin: 03/05/18 07:52 Dose: 1 tablet Multivitamins/Minerals (Healthy Eyes) 1 tablet PO DAILY [facility] Last Admin: 03/05/18 07:52 Dose: 1 tablet Nitroglycerin (Nitrostat) 0.4 mg SUBLINGUAL Q5M PRN PRN Reason: CHEST PAIN Pravastatin Sodium (Pravachol) 80 mg PO QHS [facility] Last Admin: 03/04/18 21:39 Dose: 80 mg Medical Necessity - Tobacco Use Smoking Status: Former smoker Assessment/Plan All Active Problems Stroke (Acute) 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 Goal of rehab is christian of prior level functional independence. Plan: Physical therapy for gait and balance Occupational Therapy for ADLs Speech therapy DVT prophylaxis: Lovenox Bowel protocol As needed analgesics Bladder cancer: Continue as needed self catheterizations Glaucoma: Continue eyedrops
[2018-03-05] MEDS: Latanoprost 0.005% 1 Bottle 1 DRP EACH EYE (10:47)
[2018-03-05 10:58] VITALS: BMI 34.2
--- NOTE | 2018-03-05 20:15 | NURSING ---
pt found up in bathroom on own. explained importance of using call light and not to self transfer for patients safety. pt voiced understanding. returned to chair with standby assist. personal alarm placed on pt. call light in reach. vital signs and assessment completed.
[2018-03-05 20:20] VITALS: BP 162/72; PULSE 70; RESP 18; TEMP 36.5; O2SAT 95
[2018-03-05] MEDS: Pravastatin 80 MG Tablet PO (21:52)
[2018-03-06 01:18] VITALS: BMI 34.2
[2018-03-06] MEDS: Enoxaparin 40 MG/0.4 ML Syringe SC (07:19)
[2018-03-06 09:59] VITALS: BP 137/70; PULSE 77
[2018-03-06] MEDS: Docusate Sodium 100 MG Capsule PO ×2 (09:59→21:43)
[2018-03-06] MEDS: Losartan Potassium 50 MG Tablet PO (09:59)
[2018-03-06] MEDS: Multivitamins,Therapeutic Tablet 1 TABLET PO (09:59)
[2018-03-06] MEDS: Clopidogrel Bisulfate 75 MG Tablet PO (09:59)
[2018-03-06] MEDS: Metoprolol(XL)Succ 100 MG Tablet PO (09:59)
[2018-03-06] MEDS: Aspirin E.C. 81 MG Tablet PO (09:59)
[2018-03-06 10:00] VITALS: BP 137/70; PULSE 77; RESP 18; TEMP 37; O2SAT 93
[2018-03-06] MEDS: Latanoprost 0.005% 1 Bottle 1 DRP EACH EYE (10:03)
--- NOTE | 2018-03-06 10:40 | PCM.PN.NEU ---
Subjective: Patient seen and examined. Swelling of Left ankle noted on exam, patient indicated this was normal, had several veins removed years ago, Kevin hose to leg and keep leg elevated when in bedside recliner. Tolerating therapy, vision in right eye back to base line per patient. No issues with GI/. - Physical Exam General: Alert, Oriented x3, Cooperative HEENT: Atraumatic, PERRLA, EOMI, Normocephalic Neck: Supple, No JVD, Negative Carotid Bruits Lungs: Clear to auscultation, Normal air movement Cardiovascular: Regular rate, No murmurs Abdomen: Bowel Sounds Present, Soft, Non Tender Extremities: No edema, Capillary Refill Less than 3 Seconds Skin: No rashes, No breakdown Musculoskeletal: No Tenderness to Palpation of Joints or Extremities Neurological: Cranial nerves II-XII grossly intact Psych/Mental Status: Normal Affect, Appropriate, Alert and oriented to time, place, person, mood and affect Vital Signs Temp Pulse Resp BP Pulse Ox 98.6 F 77 18 137/70 H 93 03/06/18 10:00 03/06/18 10:00 03/06/18 10:00 03/06/18 10:00 03/06/18 10:00 Oxygen Delivery Method Room Air Weight: 101.1 kg Body Mass Index (BMI) 34.2 Finger Stick Blood Glucose 127 Active Medications Aspirin (Ecotrin) 81 mg PO DAILY@0800 [facility] Last Admin: 03/06/18 09:59 Dose: 81 mg Bisacodyl (Dulcolax) 10 mg RECTAL .PRN X 1 PRN PRN Reason: Constipation Brimonidine Tartrate (Combigan Eye Drops) 1 drop LEFT EYE BID [facility] Last Admin: 03/06/18 10:03 Dose: 1 drop Clopidogrel Bisulfate (Plavix) 75 mg PO DAILY [facility] Last Admin: 03/06/18 09:59 Dose: 75 mg Docusate Sodium (Colace) 100 mg PO BID [facility] Last Admin: 03/06/18 09:59 Dose: 100 mg Enoxaparin Sodium (Lovenox) 40 mg SC DAILY@0600 [facility] Last Admin: 03/06/18 07:19 Dose: 40 mg Latanoprost (Xalatan Opthalmic) 1 drop EACH EYE DAILY [facility] Last Admin: 03/06/18 10:03 Dose: 1 drop Losartan Potassium (Cozaar) 50 mg PO DAILY [facility] Last Admin: 03/06/18 09:59 Dose: 50 mg Magnesium Hydroxide (Milk Of Magnesia) 30 ml PO .PRN X 1 PRN PRN Reason: Constipation Metoprolol Succinate (Toprol Xl (Beta Carlos)) 100 mg PO DAILY [facility] Last Admin: 03/06/18 09:59 Dose: 100 mg Multivitamins (Multivitamin) 1 tablet PO DAILY@0800 [facility] Last Admin: 03/06/18 09:59 Dose: 1 tablet Multivitamins/Minerals (Healthy Eyes) 1 tablet PO DAILY [facility] Last Admin: 03/06/18 09:58 Dose: 1 tablet Nitroglycerin (Nitrostat) 0.4 mg SUBLINGUAL Q5M PRN PRN Reason: CHEST PAIN Pravastatin Sodium (Pravachol) 80 mg PO QHS [facility] Last Admin: 03/05/18 21:52 Dose: 80 mg Medical Necessity - Tobacco Use Smoking Status: Former smoker Assessment/Plan All Active Problems Stroke (Acute) 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 Goal of rehab is evangelical of prior level functional independence. Plan: Physical therapy for gait and balance Occupational Therapy for ADLs Speech therapy DVT prophylaxis: Lovenox Bowel protocol As needed analgesics Bladder cancer: Continue as needed self catheterizations Glaucoma: Continue eyedrops Left ankle swelling - Kevin hose, keep leg elevated when in bedside recliner
--- NOTE | 2018-03-06 10:45 | PN.NEURO_ITS ---
Subjective: Patient seen and examined. Swelling of Left ankle noted on exam, patient indicated this was normal, had several veins removed years ago, Kevin hose to leg and keep leg elevated when in bedside recliner. Tolerating therapy, vision in right eye back to base line per patient. No issues with GI/. - Physical Exam General: Alert, Oriented x3, Cooperative HEENT: Atraumatic, PERRLA, EOMI, Normocephalic Neck: Supple, No JVD, Negative Carotid Bruits Lungs: Clear to auscultation, Normal air movement Cardiovascular: Regular rate, No murmurs Abdomen: Bowel Sounds Present, Soft, Non Tender Extremities: No edema, Capillary Refill Less than 3 Seconds Skin: No rashes, No breakdown Musculoskeletal: No Tenderness to Palpation of Joints or Extremities Neurological: Cranial nerves II-XII grossly intact Psych/Mental Status: Normal Affect, Appropriate, Alert and oriented to time, place, person, mood and affect Vital Signs Temp Pulse Resp BP Pulse Ox 98.6 F 77 18 137/70 H 93 03/06/18 10:00 03/06/18 10:00 03/06/18 10:00 03/06/18 10:00 03/06/18 10:00 Oxygen Delivery Method Room Air Weight: 101.1 kg Body Mass Index (BMI) 34.2 Finger Stick Blood Glucose 127 Active Medications Aspirin (Ecotrin) 81 mg PO DAILY@0800 [facility] Last Admin: 03/06/18 09:59 Dose: 81 mg Bisacodyl (Dulcolax) 10 mg RECTAL .PRN X 1 PRN PRN Reason: Constipation Brimonidine Tartrate (Combigan Eye Drops) 1 drop LEFT EYE BID [facility] Last Admin: 03/06/18 10:03 Dose: 1 drop Clopidogrel Bisulfate (Plavix) 75 mg PO DAILY [facility] Last Admin: 03/06/18 09:59 Dose: 75 mg Docusate Sodium (Colace) 100 mg PO BID [facility] Last Admin: 03/06/18 09:59 Dose: 100 mg Enoxaparin Sodium (Lovenox) 40 mg SC DAILY@0600 [facility] Last Admin: 03/06/18 07:19 Dose: 40 mg Latanoprost (Xalatan Opthalmic) 1 drop EACH EYE DAILY [facility] Last Admin: 03/06/18 10:03 Dose: 1 drop Losartan Potassium (Cozaar) 50 mg PO DAILY [facility] Last Admin: 03/06/18 09:59 Dose: 50 mg Magnesium Hydroxide (Milk Of Magnesia) 30 ml PO .PRN X 1 PRN PRN Reason: Constipation Metoprolol Succinate (Toprol Xl (Beta Carlos)) 100 mg PO DAILY [facility] Last Admin: 03/06/18 09:59 Dose: 100 mg Multivitamins (Multivitamin) 1 tablet PO DAILY@0800 [facility] Last Admin: 03/06/18 09:59 Dose: 1 tablet Multivitamins/Minerals (Healthy Eyes) 1 tablet PO DAILY [facility] Last Admin: 03/06/18 09:58 Dose: 1 tablet Nitroglycerin (Nitrostat) 0.4 mg SUBLINGUAL Q5M PRN PRN Reason: CHEST PAIN Pravastatin Sodium (Pravachol) 80 mg PO QHS [facility] Last Admin: 03/05/18 21:52 Dose: 80 mg Medical Necessity - Tobacco Use Smoking Status: Former smoker Assessment/Plan All Active Problems Stroke (Acute) 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 Goal of rehab is denominational of prior level functional independence. Plan: Physical therapy for gait and balance Occupational Therapy for ADLs Speech therapy DVT prophylaxis: Lovenox Bowel protocol As needed analgesics Bladder cancer: Continue as needed self catheterizations Glaucoma: Continue eyedrops Left ankle swelling - Kevin hose, keep leg elevated when in bedside recliner
[2018-03-06 15:40] VITALS: BMI 34.2
--- NOTE | 2018-03-06 17:54 | NURSING ---
Took pt his food tray, pt's was in the room and pt was in the bathroom, this RN asked the how the pt got to the restroom she stated he walked himself. Pt took off PA and went to restroom without calling. This RN stressed to spouse and pt that they need to call us before getting out of the chair. Both verbalized understanding.
[2018-03-06 21:42] VITALS: BP 150/73; PULSE 66; RESP 16; TEMP 36.8; O2SAT 96
[2018-03-06] MEDS: Pravastatin 80 MG Tablet PO (21:43)
[2018-03-07 00:22] VITALS: BMI 34.2
--- NOTE | 2018-03-07 01:53 | NURSING ---
Reviewed and agree with BUSINESS ASST documentation and FIMs charting.
[2018-03-07] MEDS: Enoxaparin 40 MG/0.4 ML Syringe SC (05:48)
[2018-03-07 07:49] VITALS: BP 137/74; PULSE 68; RESP 18; TEMP 36.8; O2SAT 95
[2018-03-07 09:52] VITALS: BP 137/74; PULSE 68
[2018-03-07] MEDS: Losartan Potassium 50 MG Tablet PO (09:52)
[2018-03-07] MEDS: Metoprolol(XL)Succ 100 MG Tablet PO (09:52)
[2018-03-07] MEDS: Clopidogrel Bisulfate 75 MG Tablet PO (09:52)
[2018-03-07] MEDS: Docusate Sodium 100 MG Capsule PO ×2 (09:52→22:10)
[2018-03-07] MEDS: Aspirin E.C. 81 MG Tablet PO (09:52)
[2018-03-07] MEDS: Multivitamins,Therapeutic Tablet 1 TABLET PO (09:52)
[2018-03-07] MEDS: Latanoprost 0.005% 1 Bottle 1 DRP EACH EYE (09:53)
--- NOTE | 2018-03-07 10:14 | PCM.PN.NEU ---
Subjective: Staffed in team meeting. Family was at bedside, questions answered. With Physical therapy, he is able to go from a sitting to a standing position with supervision only. He has walked over 450 feet without a device at supervision. He has gone up and down a flight of steps at contact guard. With Occupational therapy, he is supervision for his personal grooming, and washing his face. He is able to do all his upper body bathing and dressing at set-up with supervision. He is standby assist for bathing, toileting and dressing for his lower body care. With Speech therapy, his biggest issue has been his short term memory, he has some delay when trying to recall task or performing steps during a particular exercise. He is have trouble with recalling the names of family members. The therapist discussed with the spouse on ways to assist with this area. With nursing, his blood pressure has been stable, pain has been well controlled on current medications and he is sleeping well. Patient is doing well, the current plan is for discharge on Friday 03/09 home, currently the patient does not wish to have outpatient Physical therapy or Occupational therapy. - Physical Exam General: Alert, Oriented x3, Cooperative HEENT: Atraumatic, PERRLA, EOMI, Normocephalic Neck: Supple, No JVD, Negative Carotid Bruits Lungs: Clear to auscultation, Normal air movement Cardiovascular: Regular rate, No murmurs Abdomen: Bowel Sounds Present, Soft, Non Tender Extremities: No edema, Capillary Refill Less than 3 Seconds Skin: No rashes, No breakdown Musculoskeletal: No Tenderness to Palpation of Joints or Extremities Neurological: Cranial nerves II-XII grossly intact Psych/Mental Status: Normal Affect, Appropriate, Alert and oriented to time, place, person, mood and affect Vital Signs Temp Pulse Resp BP Pulse Ox 98.3 F 68 18 137/74 H 95 03/07/18 07:49 03/07/18 09:52 03/07/18 07:49 03/07/18 09:52 03/07/18 07:49 Oxygen Delivery Method Room Air Weight: 101.1 kg Body Mass Index (BMI) 34.2 Finger Stick Blood Glucose 127 Intake and Output for Last 24 Hours 03/05/18 03/06/18 03/07/18 23:59 23:59 23:59 Intake Total 240 / 240 Balance 240 / 240 Active Medications Aspirin (Ecotrin) 81 mg PO DAILY@0800 [facility] Last Admin: 03/07/18 09:52 Dose: 81 mg Bisacodyl (Dulcolax) 10 mg RECTAL .PRN X 1 PRN PRN Reason: Constipation Brimonidine Tartrate (Combigan Eye Drops) 1 drop LEFT EYE BID [facility] Last Admin: 03/07/18 09:53 Dose: 1 drop Clopidogrel Bisulfate (Plavix) 75 mg PO DAILY [facility] Last Admin: 03/07/18 09:52 Dose: 75 mg Docusate Sodium (Colace) 100 mg PO BID [facility] Last Admin: 03/07/18 09:52 Dose: 100 mg Enoxaparin Sodium (Lovenox) 40 mg SC DAILY@0600 [facility] Last Admin: 03/07/18 05:48 Dose: 40 mg Latanoprost (Xalatan Opthalmic) 1 drop EACH EYE DAILY [facility] Last Admin: 03/07/18 09:53 Dose: 1 drop Losartan Potassium (Cozaar) 50 mg PO DAILY [facility] Last Admin: 03/07/18 09:52 Dose: 50 mg Magnesium Hydroxide (Milk Of Magnesia) 30 ml PO .PRN X 1 PRN PRN Reason: Constipation Metoprolol Succinate (Toprol Xl (Beta Carlos)) 100 mg PO DAILY [facility] Last Admin: 03/07/18 09:52 Dose: 100 mg Multivitamins (Multivitamin) 1 tablet PO DAILY@0800 [facility] Last Admin: 03/07/18 09:52 Dose: 1 tablet Multivitamins/Minerals (Healthy Eyes) 1 tablet PO DAILY [facility] Last Admin: 03/07/18 09:53 Dose: 1 tablet Nitroglycerin (Nitrostat) 0.4 mg SUBLINGUAL Q5M PRN PRN Reason: CHEST PAIN Pravastatin Sodium (Pravachol) 80 mg PO QHS [facility] Last Admin: 03/06/18 21:43 Dose: 80 mg Medical Necessity - Tobacco Use Smoking Status: Former smoker Assessment/Plan All Active Problems Stroke (Acute) 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 Goal of rehab is orthodox of prior level functional independence. Plan: Physical therapy for gait and balance Occupational Therapy for ADLs Speech therapy DVT prophylaxis: Lovenox Bowel protocol As needed analgesics Bladder cancer: Continue as needed self catheterizations Glaucoma: Continue eyedrops Left ankle swelling - Kevin hose, keep leg elevated when in bedside recliner Plan is for discharge home on Friday 03/09
--- NOTE | 2018-03-07 10:25 | PN.NEURO_ITS ---
Subjective: Staffed in team meeting. Family was at bedside, questions answered. With Physical therapy, he is able to go from a sitting to a standing position with supervision only. He has walked over 450 feet without a device at supervision. He has gone up and down a flight of steps at contact guard. With Occupational therapy, he is supervision for his personal grooming, and washing his face. He is able to do all his upper body bathing and dressing at set-up with supervision. He is standby assist for bathing, toileting and dressing for his lower body care. With Speech therapy, his biggest issue has been his short term memory, he has some delay when trying to recall task or performing steps during a particular exercise. He is have trouble with recalling the names of family members. The therapist discussed with the spouse on ways to assist with this area. With nursing, his blood pressure has been stable, pain has been well controlled on current medications and he is sleeping well. Patient is doing well , the current plan is for discharge on Friday 03/09 home, currently the patient does not wish to have outpatient Physical therapy or Occupational therapy. - Physical Exam General: Alert, Oriented x3, Cooperative HEENT: Atraumatic, PERRLA, EOMI, Normocephalic Neck: Supple, No JVD, Negative Carotid Bruits Lungs: Clear to auscultation, Normal air movement Cardiovascular: Regular rate, No murmurs Abdomen: Bowel Sounds Present, Soft, Non Tender Extremities: No edema, Capillary Refill Less than 3 Seconds Skin: No rashes, No breakdown Musculoskeletal: No Tenderness to Palpation of Joints or Extremities Neurological: Cranial nerves II-XII grossly intact Psych/Mental Status: Normal Affect, Appropriate, Alert and oriented to time, place, person, mood and affect Vital Signs Temp Pulse Resp BP Pulse Ox 98.3 F 68 18 137/74 H 95 03/07/18 07:49 03/07/18 09:52 03/07/18 07:49 03/07/18 09:52 03/07/18 07:49 Oxygen Delivery Method Room Air Weight: 101.1 kg Body Mass Index (BMI) 34.2 Finger Stick Blood Glucose 127 Intake and Output for Last 24 Hours 03/05/18 03/06/18 03/07/18 23:59 23:59 23:59 Intake Total 240 / 240 Balance 240 / 240 Active Medications Aspirin (Ecotrin) 81 mg PO DAILY@0800 [facility] Last Admin: 03/07/18 09:52 Dose: 81 mg Bisacodyl (Dulcolax) 10 mg RECTAL .PRN X 1 PRN PRN Reason: Constipation Brimonidine Tartrate (Combigan Eye Drops) 1 drop LEFT EYE BID [facility] Last Admin: 03/07/18 09:53 Dose: 1 drop Clopidogrel Bisulfate (Plavix) 75 mg PO DAILY [facility] Last Admin: 03/07/18 09:52 Dose: 75 mg Docusate Sodium (Colace) 100 mg PO BID [facility] Last Admin: 03/07/18 09:52 Dose: 100 mg Enoxaparin Sodium (Lovenox) 40 mg SC DAILY@0600 [facility] Last Admin: 03/07/18 05:48 Dose: 40 mg Latanoprost (Xalatan Opthalmic) 1 drop EACH EYE DAILY [facility] Last Admin: 03/07/18 09:53 Dose: 1 drop Losartan Potassium (Cozaar) 50 mg PO DAILY [facility] Last Admin: 03/07/18 09:52 Dose: 50 mg Magnesium Hydroxide (Milk Of Magnesia) 30 ml PO .PRN X 1 PRN PRN Reason: Constipation Metoprolol Succinate (Toprol Xl (Beta Carlos)) 100 mg PO DAILY [facility] Last Admin: 03/07/18 09:52 Dose: 100 mg Multivitamins (Multivitamin) 1 tablet PO DAILY@0800 [facility] Last Admin: 03/07/18 09:52 Dose: 1 tablet Multivitamins/Minerals (Healthy Eyes) 1 tablet PO DAILY [facility] Last Admin: 03/07/18 09:53 Dose: 1 tablet Nitroglycerin (Nitrostat) 0.4 mg SUBLINGUAL Q5M PRN PRN Reason: CHEST PAIN Pravastatin Sodium (Pravachol) 80 mg PO QHS [facility] Last Admin: 03/06/18 21:43 Dose: 80 mg Medical Necessity - Tobacco Use Smoking Status: Former smoker Assessment/Plan All Active Problems Stroke (Acute) 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 Goal of rehab is druze of prior level functional independence. Plan: Physical therapy for gait and balance Occupational Therapy for ADLs Speech therapy DVT prophylaxis: Lovenox Bowel protocol As needed analgesics Bladder cancer: Continue as needed self catheterizations Glaucoma: Continue eyedrops Left ankle swelling - Kevin hose, keep leg elevated when in bedside recliner Plan is for discharge home on Friday 03/09
[2018-03-07 13:56] VITALS: BMI 34.2
--- NOTE | 2018-03-07 14:20 | CASEMGMT ---
Team meeting held. Patient present as well as patent spouse. Patient requesting for discharge date to be set for 03/09/18, team is agreeable to discharge date. Physical and Occupational therapy are recommending for patient to continue with services through outpatient therapy services. Patient unsure about continuing therapy and wants some time to think about this. Patient reporting to have all needed durable medical equipment already set up within the home. Patient spouse to provide transportation home for patient at time of discharge. Patient approved 19 Medicare Days with a discharge to be on or by 03/21/18. Support given. Will continue to follow for outpatient therapy set up. Proposed discharge date: 03/09/18 PLAN: Discharge to home with spouse and possible outpatient therapy services. Yulisa QUIROZ, ACCOUNT MANAGER B2B
[2018-03-07 19:35] VITALS: BP 128/71; PULSE 65; RESP 16; TEMP 36.8; O2SAT 95
[2018-03-07] MEDS: Pravastatin 80 MG Tablet PO (22:10)
[2018-03-08 05:00] VITALS: BMI 34.2
[2018-03-08] MEDS: Enoxaparin 40 MG/0.4 ML Syringe SC (06:41)
[2018-03-08 08:00] VITALS: BP 140/80; RESP 18; TEMP 36.6; O2SAT 97
[2018-03-08 08:12] VITALS: PULSE 94
[2018-03-08] MEDS: Aspirin E.C. 81 MG Tablet PO (08:12)
[2018-03-08] MEDS: Multivitamins,Therapeutic Tablet 1 TABLET PO (08:12)
[2018-03-08] MEDS: Metoprolol(XL)Succ 100 MG Tablet PO (08:12)
[2018-03-08] MEDS: Clopidogrel Bisulfate 75 MG Tablet PO (08:12)
[2018-03-08] MEDS: Losartan Potassium 50 MG Tablet PO (08:13)
[2018-03-08] MEDS: Latanoprost 0.005% 1 Bottle 1 DRP EACH EYE (08:16)
--- NOTE | 2018-03-08 13:01 | CASEMGMT ---
Social Work Spoke with patient in room. Patient is agreeable to continued physical and occupational therapy through outpatient therapy services. Patient requesting for outpatient physical therapy to be set up through [facility]. This social professionals communicating to patient that order will be faxed to [facility] and then [facility] will contact patient to set up appointment. Patient voicing understanding. Patient voicing no further needs at this time. Patient spouse to provide transportation home for patient at time of discharge. Support given. Phone call to spouse to communicate outpatient therapy process and that [facility] will be contacting patient to set up appointment. Order for outpatient physical and occupational therapy faxed to [facility]. Proposed discharge date: 03/09/18 PLAN: Discharge to home with spouse. Yulisa QUIROZ, MANAGER INSPECTION
--- NOTE | 2018-03-08 13:13 | PCM.DC ---
- Discharge Diagnoses Reason(s) for Visit for Discharge Instructions: CVA You will use the following diet at home:: Regular Your food should be the consistency of: Regular Your liquids should be the consistency of: Regular/Thin Discharge Activity: May Not Drive, May Shower, May Take a Tub Bath Weight Bearing Status: Weight bearing as tolerated Call your doctor if you observe: Fever of 101 or Higher, Coldness, Increased Pain, Numbness or Tingling, Change in Color, Inability to urinate, Inability to have a bowel movement, Using more than one pad per hour, Shortness of breath, Dizziness, Fainting spells, Swelling in the ankles, Chest pain, Prolonged hiccoughing, Increased palpitations (irregular heartbeat), Calf discomfort, Uncontrolled pain Allergies/Adverse Reactions: Allergies quinapril [From Accupril] Adverse Reaction (Verified 02/28/18 10:29) Other COUGH Medications to take at Discharge Aspirin E.C. [Ecotrin] 81 mg PO DAILY@0800 02/28/18 Brimonidine Tartrate/Timolol [Combigan 0.2%-0.5% Eye Drops] 1 drop LEFT EYE BID 02/28/18 Latanoprost/Pf [Latanoprost 0.005% Eye Drop] 1 drop EACH EYE DAILY 02/28/18 Multivitamin [Daily Multiple Vitamin] 1 tablet PO DAILY 02/28/18 Nitroglycerin [Nitrostat] 0.4 mg SL PRN PRN 02/28/18 Pravastatin [Pravachol] 80 mg PO QHS 02/28/18 Vit C/E/Zn/Coppr/Lutein/Zeaxan [Preservision Areds 2 Softgel] 1 capsule PO DAILY 02/28/18 Clopidogrel Bisulfate [Plavix] 75 mg PO DAILY #30 tab 03/08/18 Losartan Potassium [Cozaar] 50 mg PO DAILY #30 tab 03/08/18 Metoprolol Succinate [Toprol Xl] 100 mg PO DAILY #30 tab.er.24h 03/08/18 Pravastatin [Pravachol] 80 mg PO QHS #30 tab 03/08/18 The following prescriptions were given: Clopidogrel Bisulfate [Plavix] 75 mg PO DAILY #30 tab Losartan Potassium [Cozaar] 50 mg PO DAILY #30 tab Metoprolol Succinate [Toprol Xl] 100 mg PO DAILY #30 tab.er.24h Pravastatin [Pravachol] 80 mg PO QHS #30 tab Primary Care Physician: William Sweet III, MD [Primary Care Provider] - Test Results: Test results from this visit will be discussed in further detail at your follow-up appointment, if applicable. Please Follow Up With: Olya Conrad NP-C When: April 01, 2018 @ 3 PM Proposed Discharge Date: 03/09/18
--- NOTE | 2018-03-08 13:27 | DS.PCM_ITS ---
Rehab Discharge Summary DATE OF ADMISSION: 03/02/18 DATE OF DISCHARGE: 03/09/18 - Rehab Diagnosis CVA Discharge Diet: Low fat/ Low Cholesterol, 2000 mg Sodium Diet Discharge Activity: May Not Drive, May Shower, May Take a Tub Bath Weight Bearing Status: Weight bearing as tolerated Call your doctor if you observe: Fever of 101 or Higher, Coldness, Increased Pain, Numbness or Tingling, Change in Color, Inability to urinate, Inability to have a bowel movement, Using more than one pad per hour, Shortness of breath, Dizziness, Fainting spells, Swelling in the ankles, Chest pain, Prolonged hiccoughing, Increased palpitations (irregular heartbeat), Calf discomfort, Uncontrolled pain Home Medications: Medications to take at Discharge Aspirin E.C. [Ecotrin] 81 mg PO DAILY@0800 02/28/18 Brimonidine Tartrate/Timolol [Combigan 0.2%-0.5% Eye Drops] 1 drop LEFT EYE BID 02/28/18 Latanoprost/Pf [Latanoprost 0.005% Eye Drop] 1 drop EACH EYE DAILY 02/28/18 Multivitamin [Daily Multiple Vitamin] 1 tablet PO DAILY 02/28/18 Nitroglycerin [Nitrostat] 0.4 mg SL PRN PRN 02/28/18 Pravastatin [Pravachol] 80 mg PO QHS 02/28/18 Vit C/E/Zn/Coppr/Lutein/Zeaxan [Preservision Areds 2 Softgel] 1 capsule PO DAILY 02/28/18 Clopidogrel Bisulfate [Plavix] 75 mg PO DAILY #30 tab 03/08/18 Losartan Potassium [Cozaar] 50 mg PO DAILY #30 tab 03/08/18 Metoprolol Succinate [Toprol Xl] 100 mg PO DAILY #30 tab.er.24h 03/08/18 Pravastatin [Pravachol] 80 mg PO QHS #30 tab 03/08/18 Following Prescrptions Were Given to Patient: Clopidogrel Bisulfate [Plavix] 75 mg PO DAILY #30 tab Losartan Potassium [Cozaar] 50 mg PO DAILY #30 tab Metoprolol Succinate [Toprol Xl] 100 mg PO DAILY #30 tab.er.24h Pravastatin [Pravachol] 80 mg PO QHS #30 tab Primary Care Physician: William Sweet III, MD [Primary Care Provider] - Please Follow Up With: [facility] - Outpatient Physical and Occupational Therapy Please Follow Up With: Olya Conrad NP-C When: April 01, 2018 @ 3 PM Disposition: Home - With Outpatient Physical therapy, and Occupational therapy Minutes spent on discharge:: 40 Patient Condition:: Good Rehab Course The patient is a 72 year old M admitted to the rehab unit. Going to his hospital admission note as below, he was admitted with loss of his right vision and right-sided numbness and was diagnosed with a left VICE CHANCELLOR distribution infarct as well as a left carotid occlusion. He is improved, workup was otherwise negative and he has been admitted to the rehab unit for rehabilitation in order to return home. He lives at home with his in a one-story house. He is previously functionally independent. He has no GI or complaints, denies insomnia and is tolerating therapies thus far. His primary complaint now is decreased memory. He notes that he has trouble remembering people's names and birthdays. With Physical therapy, he is able to go from a sitting to a standing position with supervision only. He has walked over 450 feet without a device at supervision. He has gone up and down a flight of steps at contact guard. With Occupational therapy, he is supervision for his personal grooming, and washing his face. He is able to do all his upper body bathing and dressing at set-up with supervision. He is standby assist for bathing, toileting and dressing for his lower body care. With Speech therapy, his biggest issue has been his short term memory, he has some delay when trying to recall task or performing steps during a particular exercise. He is have trouble with recalling the names of family members. The therapist discussed with the spouse on ways to assist with this area. With nursing, his blood pressure has been stable, pain has been well controlled on current medications and he is sleeping well. Patient is doing well, the current plan is for discharge on Friday 03/09 home, with outpatient Physical therapy or Occupational therapy. Per admission H&P: The patient is a 72 year old M who presents to the Emergency Room due to right sided numbness and weakness and associated loss of peripheral vision right side. Patient states this began approximately 4am this morning. He denies speech changes, facial droop, difficulty swallowing. Symptoms have improved since arriving to ER. Continues to have right-sided numbness. Denies significant right-sided weakness. States he has history of TIA. Denies history of stroke. States he was previously on aspirin which he stopped taking 3 months ago. Does not follow with neurology. Patient notes he has chronic vision changes due to glaucoma however his right peripheral vision seems to be worsened since this morning. He denies chest pain, shortness of breath. He has a past medical history of TIA, left ICA occlusion, right CEA, hypertension, hyperlipidemia, bladder cancer currently undergoing BCG treatment , CAD status post CABG, PVD, open-angle glaucoma, obesity. Meaningful Use Info Meaningful Use Diagnoses (Choose all that apply): Ischemic CVA - CVA Therapy Assessed for PT,OT and/or ST?: Yes - Ischemic Stroke Antithrombotic order at d/c?: Yes Dx of Atrial fib/flutter?: No Statins at discharge?: Yes Primary Dx Acute Ischemic CVA?: Yes IV tPA ordered during stay?: No Reason IV t-PA not ordered: Treatment not Indicated
[2018-03-08 15:01] VITALS: BMI 34.2
[2018-03-08 19:10] VITALS: BP 144/83; PULSE 72; RESP 16; TEMP 36.1; O2SAT 96
[2018-03-08] MEDS: Pravastatin 80 MG Tablet PO (20:54)
[2018-03-09] MEDS: Enoxaparin 40 MG/0.4 ML Syringe SC (06:05)
[2018-03-09 07:25] VITALS: BP 143/86; PULSE 68; RESP 18; TEMP 36.6; O2SAT 97
[2018-03-09 09:25] VITALS: PULSE 68
[2018-03-09] MEDS: Metoprolol(XL)Succ 100 MG Tablet PO (09:25)
[2018-03-09] MEDS: Aspirin E.C. 81 MG Tablet PO (09:26)
[2018-03-09] MEDS: Losartan Potassium 50 MG Tablet PO (09:26)
[2018-03-09] MEDS: Clopidogrel Bisulfate 75 MG Tablet PO (09:26)
[2018-03-09] MEDS: Multivitamins,Therapeutic Tablet 1 TABLET PO (09:26)
[2018-03-09] MEDS: Latanoprost 0.005% 1 Bottle 1 DRP EACH EYE (09:28)
[2018-03-09 11:00] VITALS: BP 143/86; PULSE 68; RESP 18; TEMP 36.6; O2SAT 97; BMI 34.2
--- NOTE | 2018-03-09 11:00 | NURSING ---
Patient and verbalized understanding to discharge instructions given and given script to get 30 day heart monitor set up.
== END 2018-03-09 11:00 | disposition home or self-care (01) | DRG 57 ==
PROVIDERS: Psychiatry & Neurology Neurology; Admitting Provider Psychiatry & Neurology Neurology; Family Provider Family Medicine; PCP Family Medicine
DX: I69.398 Other sequelae of cerebral infarction (principal); I69.311 Memory deficit following cerebral infarction; H54.61 Unqualified visual loss, right eye, normal vision left eye; R20.0 Anesthesia of skin; E78.5 Hyperlipidemia, unspecified; I25.10 Atherosclerotic heart disease of native coronary artery without angina pectoris; Z95.1 Presence of aortocoronary bypass graft; I10 Essential (primary) hypertension; I73.9 Peripheral vascular disease, unspecified; E66.9 Obesity, unspecified; Z68.33 Body mass index [BMI] 33.0-33.9, adult; Z71.3 Dietary counseling and surveillance; Z87.891 Personal history of nicotine dependence; H40.10X0 Unspecified open-angle glaucoma, stage unspecified; Z85.51 Personal history of malignant neoplasm of bladder
CPT/HCPCS: 36415; 80048; 85027; 92507; 97110; 97116; 97161; 97166; 97530; 97535; 97802; 97803

== ENCOUNTER 2018-04-16 13:00 | Outpatient (RCR) | payer MEDICARE, OTHER, SELFPAY ==
--- NOTE | 2018-03-19 07:33 | HP.OTEVAL ---
Patient's Visit Information TABITHA PIERRE is a 72 year old M, referred to Occupational Therapy by JOSEPH Herrera, with a diagnosis of CVA. Date of Evaluation: 03/18/18 Occupational Therapist: Bridgette Fregoso - Subjective Subjective: Tabitha arrived with , Madina. Noted that last CVA occur in January, 02/28/18, and was release from hospital last Sunday. He has had previously has previously has TIA. 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 noted he spent week on inpatient rehab. Noted he feels R sided weakness and is R hand dominant. noted that he felt numbness on R side when having the CVA. Did not get tpa. - Objective Objective/Observation: ROM WFL, R sided weakness noted with MMT; decreased peripheral vision to about R 80 degrees and L 45 degrees. - ROM Shoulder: WFL Elbow: WFL Forearm: WFL Wrist: WFL MP: WFL PIP: WFL DIP: WFL - Strength Shoulder: R 4/5 L 5/5 Elbow: R 4/5 L 5/5 Forearm: R 4/5 L 5/5 Wrist: R 4/5 L 5/5 Structural Biologist: R 118, L 95 Lateral Pinch: R 29, L 33 Tripod Pinch: R 22, L 26 Tip-to-Tip Pinch: R 17, L 20 Strength Comments: some R sided weakness noted t/o UE. - Sensation Thumb: R 3.61, L 2.83 Index: R 3. 84, L 2.83 Middle: R 3.22, L 3.22 Ring: R 3.22, L 3.22 Little: R 3.22, L 2.83 Kinesthesia: Normal - Right, Normal - Left Proprioception: Normal - Right, Normal - Left Sensation Comments: Completed monofilament for perceived touch perception. Mild sensory deficits noted for R hand. Proprioception: very minimal differences noted between r vs L sides; WFL for proprioception. Increased numbness and tingling reported t/o arm with perceived sensations moving between locations. - Visual/Perceptual Skills Visual Field Cut: Yes - reports R upper cut but tracks to R upper. Left Neglect: No Copies Shapes Correctly: Yes Comments: PMHx: fuchs corneal dystrophy, glaucoma. decrease peripheral of L eye - severe stage- sees Dr. Ruvalcaba at [facility]. Has follow up in a couple weeks for vision assessment. - Cognitive Skills Follows Directions: No - needs cues with 9 hole as forgets to take out pegs. Cognitive Comments: Oriented to all three. Needs to continue to work on memory at home as per ST recommendation from [facility]. - Nine Hole Peg Right: 34.72 s Left: 25.68 s Comments: needs increased cues for direction following. - In-Hand Manipulation Finger to Palm Translation: Mild - Right, Normal - Left Palm to Finger Translation: Mild - Right, Normal - Left Shift: Normal - Right, Normal - Left Rotation: Normal - Right, Normal - Left - Stroke Specific Quality of Life Total SS-QOL Score: 115 - DASH-Disabilities of Arm, Shoulder& Hand DASH Sum: 46 - Goals Goal:: Tabitha to increased R UE strength to 4+/5 to promote increased strength and endurance to complete ADl/IADls by d/c. Goal:: Tabitha to increase R hand dexterity and FMC as exhibited through decreased time on 9 hole pegboard task to promote increased manipulation skills to promote returning to PLOF by d/c. Goal:: Tabitha to be mod I complete sensory reinetgration to help decrease numbness and tingling feeling for R UE for ADl/IADls by d/c . Goal:: Tabitha to be mod I to complete visual scanning techniques to promote seeing all visual field 4/5 trials 80% of the time to increased VMI by d/c. Goal:: Tabitha to be mod I to complete memory aids and compensatiosn to promote increased STM and comprehension tasks to increase direction following 4/5 trials 805 of the time by d/c. Goal:: Tabitha to be mod I to complete B UE strength program and general HEP 4/5 trials 80% of the time to promote increased (I) by d/c. - Rehabilitation General Assessment: Tabitha arrived for PT evaluation on this date of 03/18/18. noted that he has h/o TIA and CVA and most recently had CVA Feb 28. Completed week long rehab on inpatient rehab at [facility]. He has some R sided weakness, mild sensory deficits for touch sensation but increased numbness and tingling t/o UE, and visual field cuts (both from CVA and h/o glaucoma). OT to work on setting up HEP, strengthening, and sensory re-integration to promote increased (i) for ADL/IADls. Tabitha exhibits increased cognitive and STM impairments which have been present since last CVA and he has noted he has compensated but continues to need cues with multi-step directions through assessment. OT needed to promote increased (I) and safety with all ADl/IADls and ability to return to PLOF. Rehabilitation Potential: Excellent - Anticipated Interventions Anticipated Interventions: A/AAROM/PROM, Strengthening, Sensory Retraining, Joint Protection/Energy Conservation, Ergonomic Education, Fine Motor Coord/Danial, Neuro Reeducation, Visual/Perceptual Skills, Cognitive Skills, ADL Training, Caregiver Training, Home Program - Visit Plan Frequency: 1-2x /Week Duration: 3 Weeks General Plan: Completed training in energy conservation, sensory retraining, Visual training, B UE strengthening and returning to all ADl/IADls at PLOF. TEXT: Thank you for the opportunity to evaluate your patient. For Medicare and Medicare HMO plans, please review the plan of care and approve it. It will need to be FAXED BACK to us at [phone] for Medicare purposes. Please let me know if there are questions or concerns regarding this plan of care. Physician Signature: Date:
--- NOTE | 2018-03-19 07:37 | HP.OTEVAL_ITS ---
Patient's Visit Information TABITHA PIERRE is a 72 year old M, referred to Occupational Therapy by JOSEPH Herrera, with a diagnosis of CVA. Date of Evaluation: 03/18/18 Occupational Therapist: Bridgette Fregoso - Subjective Subjective: Tabitha arrived with , Madina. Noted that last CVA occur in January, , and was release from hospital last Sunday. He has had previously has previously has TIA. 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 noted he spent week on inpatient rehab. Noted he feels R sided weakness and is R hand dominant. noted that he felt numbness on R side when having the CVA. Did not get tpa. - Objective Objective/Observation: ROM WFL, R sided weakness noted with MMT; decreased peripheral vision to about R 80 degrees and L 45 degrees. - ROM Shoulder: WFL Elbow: WFL Forearm: WFL Wrist: WFL MP: WFL PIP: WFL DIP: WFL - Strength Shoulder: R 4/5 L 5/5 Elbow: R 4/5 L 5/5 Forearm: R 4/5 L 5/5 Wrist: R 4/5 L 5/5 Draughtsman: R 118, L 95 Lateral Pinch: R 29, L 33 Tripod Pinch: R 22, L 26 Tip-to-Tip Pinch: R 17, L 20 Strength Comments: some R sided weakness noted t/o UE. - Sensation Thumb: R 3.61, L 2.83 Index: R 3. 84, L 2.83 Middle: R 3.22, L 3.22 Ring: R 3.22, L 3.22 Little: R 3.22, L 2.83 Kinesthesia: Normal - Right, Normal - Left Proprioception: Normal - Right, Normal - Left Sensation Comments: Completed monofilament for perceived touch perception. Mild sensory deficits noted for R hand. Proprioception: very minimal differences noted between r vs L sides; WFL for proprioception. Increased numbness and tingling reported t/o arm with perceived sensations moving between locations. - Visual/Perceptual Skills Visual Field Cut: Yes - reports R upper cut but tracks to R upper. Left Neglect: No Copies Shapes Correctly: Yes Comments: PMHx: fuchs corneal dystrophy, glaucoma. decrease peripheral of L eye - severe stage- sees Dr. Ruvalcaba at [facility]. Has follow up in a couple weeks for vision assessment. - Cognitive Skills Follows Directions: No - needs cues with 9 hole as forgets to take out pegs. Cognitive Comments: Oriented to all three. Needs to continue to work on memory at home as per ST recommendation from [facility]. - Nine Hole Peg Right: 34.72 s Left: 25.68 s Comments: needs increased cues for direction following. - In-Hand Manipulation Finger to Palm Translation: Mild - Right, Normal - Left Palm to Finger Translation: Mild - Right, Normal - Left Shift: Normal - Right, Normal - Left Rotation: Normal - Right, Normal - Left - Stroke Specific Quality of Life Total SS-QOL Score: 115 - DASH-Disabilities of Arm, Shoulder& Hand DASH Sum: 46 - Goals Goal:: Tabitha to increased R UE strength to 4+/5 to promote increased strength and endurance to complete ADl/IADls by d/c. Goal:: Tabitha to increase R hand dexterity and FMC as exhibited through decreased time on 9 hole pegboard task to promote increased manipulation skills to promote returning to PLOF by d/c. Goal:: Tabitha to be mod I complete sensory reinetgration to help decrease numbness and tingling feeling for R UE for ADl/IADls by d/c . Goal:: Tabitha to be mod I to complete visual scanning techniques to promote seeing all visual field 4/5 trials 80% of the time to increased VMI by d/c. Goal:: Tabitha to be mod I to complete memory aids and compensatiosn to promote increased STM and comprehension tasks to increase direction following 4/5 trials 805 of the time by d/c. Goal:: Tabitha to be mod I to complete B UE strength program and general HEP 4/5 trials 80% of the time to promote increased (I) by d/c. - Rehabilitation General Assessment: Tabitha arrived for PT evaluation on this date of 03/18/18. noted that he has h/o TIA and CVA and most recently had CVA Feb 28. Completed week long rehab on inpatient rehab at [facility]. He has some R sided weakness, mild sensory deficits for touch sensation but increased numbness and tingling t/o UE , and visual field cuts (both from CVA and h/o glaucoma). OT to work on setting up HEP, strengthening, and sensory re-integration to promote increased (i) for ADL/IADls. Tabitha exhibits increased cognitive and STM impairments which have been present since last CVA and he has noted he has compensated but continues to need cues with multi-step directions through assessment. OT needed to promote increased (I) and safety with all ADl/IADls and ability to return to PLOF. Rehabilitation Potential: Excellent - Anticipated Interventions Anticipated Interventions: A/AAROM/PROM, Strengthening, Sensory Retraining, Joint Protection/Energy Conservation, Ergonomic Education, Fine Motor Coord/ Danial, Neuro Reeducation, Visual/Perceptual Skills, Cognitive Skills, ADL Training, Caregiver Training, Home Program - Visit Plan Frequency: 1-2x /Week Duration: 3 Weeks General Plan: Completed training in energy conservation, sensory retraining, Visual training, B UE strengthening and returning to all ADl/IADls at PLOF. TEXT: Thank you for the opportunity to evaluate your patient. For Medicare and Medicare HMO plans, please review the plan of care and approve it. It will need to be FAXED BACK to us at [phone] for Medicare purposes. Please let me know if there are questions or concerns regarding this plan of care. Physician Signature: Date:
--- NOTE | 2018-03-19 09:30 | HP.PTEVAL_ITS ---
Patient's Visit Information TABITHA PIERRE is a 72 year old M referred to Physical Therapy by JOSEPH Herrera with a diagnosis of CVA with R sided weakness. Date of Evaluation: 03/18/18 Physical Therapist: Omid Gaston - Visit Plan Frequency: 1-2x /Week Duration: 4-6 Weeks Plan: Start with with static balance and dynamic balance exercises progressing to dynamic gait balance. Add in RLE strengthening as able. Progress exercises to HEP. - Subjective Subjective: Pt. is here today for his initial evaluation with diagnosis of ischemic CVA. Pt. Noted that last CVA occur in January, 02/28/18, and was release from hospital last Sunday. He has had previously has previously has TIA. 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 He reports initially having difficulty with visual deficits, but has improved. His main complaint now is his lack of endurance, R sided N/T and balance issues. He is back to doing some activities around the house, but is limited due to fatigue. Pt. is also noticing ST memory issues. He is hopeful to get back to all functional mobility and increased stability allowing for increased independence at home and is community. - Objective POSTURE: Pt. has FH posture, slight rounded shoulders. Pt. has increased WYATT in stance, equal iliac crest heights, Minimal postural sway in stance. PALPATION: Pt. has no issues with palpation of bLEs, no edema noted. NEURO: pt. has normal sensation throughout bilateral LEs, exepct R lateral thigh and calf- decreased to light touch. Pt. has 2+ achilles and patellar DTR bilaterally. Pt. is able to rise on heels and toes, but uses balance aide to maintain stability. ROM: pt. has normal BLE ROM, decreased lumbar ROM 25% in all directions. NO increase in pain noted. MMT: RLE- ankle- PF 4+/5, DF 4+/5; knee- ext 4+/5, flexon 4+/5; hip- flexion 4/5, abd 4/5 ,ext 4+/5. LLE- 5/5 throughout, except hip- flexion and abd 4+/5. GAIT: Pt. has slight decreaed R hip flexion, decrease R step length and increased R lateral trunk lean during R stance phase. STAIRS: Pt. is able to negotiate with reciprocal pattern, but uses 2 HR to complete, slight functional quad weakness with desecnding. - Balance Scores Functional Gait Assessment Score: 20 % Disability: 33.3400 CATSIB Score (Max score 120 seconds): 65 - Goals Goal 1:: Pt. to be I with HEP Goal Time Frame: 4-6 Weeks Goal 2:: Pt. to have increased RLE strength by 1/2 grade of all effected musculature. Goal Time Frame: 4-6 Weeks Goal 3:: Pt. to have increased FGA to 24/30 indicating reduce risk for future falls. Goal Time Frame: 4-6 Weeks Goal 4:: Pt. to have increased SLS time to 30sec on bilaterall LEs. Goal Time Frame: 4-6 Weeks Goal 5:: Pt. to ambulate unlimited distances without issues without AD to allow for increased independence in community. - Rehabilitation Potential Physical Therapy Diagnosis: Pt. has signs and symptoms consistent with R sided weakness, imbalance with gait and decreased endruance. Pt. would benefit from PT to incraese RLE strength, stability in stance and dynamic balance with gait in order to return to all fucntional mobility without limitations. Rehabilitation Potential: Excellent - Anticipated Interventions Patient/Client Instruction: Educate patient on: Condition, Plan of Care, Risk Factors, Benefits of Fitness Program For the Purpose of:: To foster healthy habits, To improve decision making, To facilitate caregiver knowledge, To improve self management, To prevent re-injury , To improve ability to perform tasks related to life management, To improve tolerance to ADL's Therapeutic Exercise to Include: Strength training, Power training, Endurance training, Balance training, Agility training, Body mechanics, Passive ROM, Active ROM For the Purpose of:: To improve muscle performance and motor function, To improve ability to perform ADL's, To increase tolerance to activity/condition/ position, To improve gait and locomotor functions, To improve health of tissue, To increase flexibility/ROM, To improve endurance, To improve balance Thank you for the opportunity to evaluate your patient. For Medicare and Medicare HMO plans, please review the plan of care and approve it. It will need to be FAXED BACK to us at [phone] for Medicare purposes. Please let me know if there are questions or concerns regarding this plan of care. Physician Signature: Date:
--- NOTE | 2018-04-09 16:34 | HP.OTDCSUM_ITS ---
HP - OT D/C Summary It has been my pleasure to treat TABITHA PIERRE under orders from JOSEPH Herrera, for the diagnosis of CVA for a total of 4 visit(s). Please see the following information for a summary of their discharge status. - Objective Objective/Function: Completed reassessment. ROM measurements are as follows: shoulder: -flexion R 0-123, L 0-146. -ext R 0-29, L 0-30. -IR R 0-34, L 0-34. -Abduction R 0-128, L 0-146. Strength is as follows: Data Management Engineer R 109, L 105. Lateral R 30, L 33. tripod R 21, L 26. tip R 17, L 18. Sensory measurements: R 2nd 3.84, 3rd 3.61, 4th 3.61, 5th 3.22, thumb 3.22. L 2nd 3.22, 3rd 3.22, 4th 2.83, 5th 2.83, thumb 3.22. Tightness noted t/o R UE through ROM and with palpation. - Goals Patient Goals: Regain Mobility, Regain Strength, Decrease Pain, Improve Fine Motor Skills, Use Hand/Wrist/Arm Normally Again, Sleep Better, Decrease Tingling/Numbness, Improve Visual/Perceptual Skills, Resume Former Household Responsibilities (Cooking,Cleaning,Yard, etc.), Resume Hobbies Goal:: Tabitha to increased R UE strength to 4+/5 to promote increased strength and endurance to complete ADl/IADls by d/c. Goal:: Tabitha to increase R hand dexterity and FMC as exhibited through decreased time on 9 hole pegboard task to promote increased manipulation skills to promote returning to PLOF by d/c. Goal:: Tabitha to be mod I complete sensory reinetgration to help decrease numbness and tingling feeling for R UE for ADl/IADls by d/c . Goal:: Tabitha to be mod I to complete visual scanning techniques to promote seeing all visual field 4/5 trials 80% of the time to increased VMI by d/c. Goal:: Tabitha to be mod I to complete memory aids and compensations to promote increased STM and comprehension tasks to increase direction following 4/5 trials 80% of the time by d/c. Goal:: Tabitha to be mod I to complete B UE strength program and general HEP 4/5 trials 80% of the time to promote increased (I) by d/c. - Plan Plan: Tabitha will be d/c'd today. He does not wish to continue OT. This was plan at start of therapy as only wanted to come for minimal session to get things to do at home. HEP set up. He is to call with questions/concerns. Handouts provided on all topics discussed. - D/C Information If there are questions or concerns regarding this patient's occupational therapy, please fell free to call me at [phone]. Thank you for the referral of this patient. Sincerely, Bridgette Fregoso
--- NOTE | 2018-04-09 16:34 | HP.OTREVAL ---
Olya Conrad, TELE[employer] SAL[employer]SULTANT-C, It has been my pleasure to treat TABITHA PIERRE over the last 4 visits for CVA. Please see the progress note below for an update on the occupational therapy plan of care! Subjective: Arrived with . present t/o session. Noted he has not done HEP 'much' over the last week but has been applying moist heat to shoulder. Objective/Function: Completed reassessment. ROM measurements are as follows: shoulder: -flexion R 0-123, L 0-146. -ext R 0-29, L 0-30. -IR R 0-34, L 0-34. -ABduction R 0-128, L 0-146. Strength is as follows: Supervisor Slashing Department R 109, L 105. Lateral R 30, L 33. tripod R 21, L 26. tip R 17, L 18. Sensory measurements: R 2nd 3.84, 3rd 3.61, 4th 3.61, 5th 3.22, thumb 3.22. L 2nd 3.22, 3rd 3.22, 4th 2.83, 5th 2.83, thumb 3.22 Plan Frequency: 1-2x /Week Duration: 3 Weeks Visits in this POC: 3-6 Plan: Tabitha will be d/c'd today. HEP set up and Pt. does not wish to continue therapy at this time. He is to call with questions/concerns. Handouts provided on all topics discussed. Goals - Goals Goal:: Tabitha to increased R UE strength to 4+/5 to promote increased strength and endurance to complete ADl/IADls by d/c. Goal:: Tabitha to increase R hand dexterity and FMC as exhibited through decreased time on 9 hole pegboard task to promote increased manipulation skills to promote returning to PLOF by d/c. Goal:: Tabitha to be mod I complete sensory reinetgration to help decrease numbness and tingling feeling for R UE for ADl/IADls by d/c . Goal:: Tabitha to be mod I to complete visual scanning techniques to promote seeing all visual field 4/5 trials 80% of the time to increased VMI by d/c. Goal:: Tabitha to be mod I to complete memory aids and compensations to promote increased STM and comprehension tasks to increase direction following 4/5 trials 80% of the time by d/c. Goal:: Tabitha to be mod I to complete B UE strength program and general HEP 4/5 trials 80% of the time to promote increased (I) by d/c. Anticipated Interventions Anticipated Interventions: A/AAROM/PROM, Strengthening, Sensory Retraining, Joint Protection/Energy Conservation, Ergonomic Education, Fine Motor Coord/Danial, Neuro Reeducation, Visual/Perceptual Skills, Cognitive Skills, ADL Training, Caregiver Training, Home Program Please do not hesitate to contact me at [phone] by phone or if you have questions or concerns regarding this new plan of care! Sincerely, Bridgette Fregoso
--- NOTE | 2018-04-23 10:52 | HP.PTDCSUM ---
HP - PT D/C Summary It has been my pleasure to treat TABITHA PIERRE under orders from JOSEPH Herrera, for the diagnosis of CVA with R sided weakness for a total of 4 visit(s). Discharge Date: 04/16/18 Please see the following information for a summary of their discharge status. - Subjective Subjective: Pt. reports he had to go hospital after last visit due to heart irregularities. Pt. reports that he is getting a pacemaker and defibulator. Pt. reports feeling much better today. - Overall Improvement % Improvement: 75 - Objective Objective/Function: FGA- 24. gait- Pt. ambulates without AD, without LOB, but did report increased fatigue at ~1000'. Pt. has normal step length, but reduced overall tempo. Pt. reports no pain with walking. Stairs: Pt. is able to negotiate with step to pattern with 2 HR without LOB, but did reports higher levels of fatigue. MMT: RLE- 5/5 throughout, except hip abd 4+/5 and hip ext 4+/5, LLE- 5/5 throughout. Pt. is progressing with balance, but has increased fatigue. He is to have a pacer and defibulator placed at the end of the month. - Goals Goal 1:: Pt. to be I with HEP Goal Progress: Goal Met Goal 2:: Pt. to have increased RLE strength by 1/2 grade of all effected musculature. Goal Progress: Goal Met Goal 3:: Pt. to have increased FGA to 24/30 indicating reduce risk for future falls. Goal Progress: Goal Met Goal 4:: Pt. to have increased SLS time to 30sec on bilaterall LEs. Goal Progress: Progressing Goal 5:: Pt. to ambulate unlimited distances without issues without AD to allow for increased independence in community. Goal Progress: Progressing - Plan Plan: Pt. will be DC to HEP at this point in time. - D/C Information Discharge Comments: Pt. was treated for his R sided weakness and imbalance after. Pt. progressed well with his stability, but continues to have increased fatigue with normal activities. He is to have a pacemaker and defibulator placement next month. He met most goals,but as above had difficulty with endurance with his functional mobility. Pt. will be DC to HEP at this point in time. If there are questions or concerns regarding this patient's physical therapy, please feel free to call me at [phone]. Thank you for the referral of this patient. Sincerely, Omid Gaston
== END 2018-04-16 19:00 | disposition home or self-care (01) ==
LOC: PT 13:00
PROVIDERS: Family Provider Family Medicine; PCP Family Medicine; Visit Provider Nurse Practitioner Acute Care
DX: Z86.73 Personal history of transient ischemic attack (TIA), and cerebral infarction without residual deficits (principal)
CPT/HCPCS: 97110; 97162; 97166; 97168; 97530; G8978; G8988

== ENCOUNTER 2023-09-19 12:03 | Emergency (ER) | payer MEDICARE, OTHER, SELFPAY ==
[2023-09-19] VITALS (7 sets, daily range): BP systolic 117–136; BP diastolic 56–70; PULSE 82–99; RESP 16–20; TEMP 36.1–36.7; O2SAT 93–100; BMI 29.7
--- NOTE | 2023-09-19 12:58 | EDS_ITS ---
HPI History of Present Illness Chief Complaint: Shortness of Breath Informant: patient and spouse/S.O. Narrative Narrative: 78-year-old male presenting to the emergency room with a chief complaint of shortness of breath. Patient has a history of coronary artery disease and per the paperwork his brought with him had a failed CABG. History of peripheral artery disease prior stroke hypertension and chronic systolic heart failure. Though the states she was unaware of a diagnosis of heart failure. states the patient has been ill since June when they both came down with some type of illness. She states that by August he was given a diagnosis of pneumonia and was treated with doxycycline. He recently developed shortness of breath again and was seen at [facility] where he was told that he had a pleural effusion and atelectasis on his chest x-ray as well as a BNP of greater than 15,000 and was told to come to emergency. He notes a cough with minimal sputum. He states that this morning he did get some phlegm up and describes it as white and more spit like. He notes dyspnea on exertion bilateral lower extremity swelling. He takes aspirin and Plavix. He is on 20 mg of Lasix a day but recently increased to 40 mg once a day 2 days ago. Patient states that he has a history of bladder cancer sees Rick Norwood in [place] and self caths. He states that his amount that he was having to self cath went down significantly about a week ago but since increasing his Lasix he is going back up on the number of times he needs the cath. He does not wish an indwelling catheter [facility] Medical History (Updated 09/19/23 @ 15:[address] Dipak Guerrero, DO) Bladder cancer CAD (coronary artery disease) Carotid artery disease Glaucoma Hyperlipidemia Hypertension ICAO (internal carotid artery occlusion) Stroke Home Medications aspirin 81 mg tablet,delayed release 81 mg PO DAILY@0800 HEART HEALTH 02/28/18 [History Last Taken 02/27/18] brimonidine 0.2 %-timolol 0.5 % eye drops (Combigan) 1 drp BID GLUACOMA 02/28/18 [History Last Taken 02/27/18] latanoprost (PF) 0.005 % eye drops 1 drp DAILY gluacoma 02/28/18 [History Last Taken 02/27/18] multivitamin (Daily Multiple tablet) 1 tab PO DAILY SUPPLEMENT 02/28/18 [History Last Taken 02/27/18] nitroglycerin 0.4 mg sublingual tablet (Nitrostat) 0.4 mg sublingual PRN PRN CHEST PAIN 02/28/18 [History Last Taken Unknown] pravastatin 80 mg tablet 80 mg PO QHS CHOLESTEROL 02/28/18 [History Last Taken 02/27/18] vit C 250 mg-vit E 90 mg-zinc 40 mg-copper 1 gz-skyley-bigqoy capsule (PreserVision AREDS-2) 1 capsule PO DAILY EYE HEALTH 02/28/18 [History Last Taken 02/27/18] clopidogrel 75 mg tablet 75 mg PO DAILY blood thinner #30 tabs 03/08/18 [Rx Last Taken Unknown] losartan 50 mg tablet 50 mg PO DAILY blood pressure #30 tabs 03/08/18 [Rx Last Taken Unknown] metoprolol succinate 100 mg tablet,extended release 24 hr 100 mg PO DAILY blood pressure ##30 03/08/18 [Rx Last Taken Unknown] pravastatin 80 mg tablet 80 mg PO QHS #30 tabs 03/08/18 [Rx Last Taken Unknown] furosemide 40 mg tablet (Lasix) 60 mg (1.5 x 40 mg) PO BID 5 days #15 tabs 09/19/23 [Rx Last Taken Unknown] Allergy/AdvReac Type Severity Reaction Status Date / Time quinapril [From Accupril] AdvReac Other Verified 09/19/23 12:07 Social History Smoking Status: Former smoker ROS ROS ED ROS Narrative Generalized fatigue Constitutional Constitutional ED: Denies chills, fever(s) or weight loss Eyes Eyes: Denies change in vision or diplopia ENT ENT ED: Denies ear pain, rhinorrhea or sore throat Cardiovascular Cardiovascular: Reports orthopnea; Denies chest pain, palpitations or racing heartbeat Respiratory/Chest Respiratory/Chest: Reports cough, dyspnea, dyspnea on exertion and orthopnea Gastrointestinal Gastrointestinal: Denies abdominal pain, diarrhea, nausea or vomiting Genitourinary Genitourinary ED: Denies dysuria, hematuria or urinary frequency Musculoskeletal Musculoskeletal: Denies arthralgias or myalgias Integumentary Denies abscess or rash Neurologic Neurologic: Denies headache(s) or weakness Psychiatric Psychiatric: Denies anxiety, depression, suicidal ideation or suicidal thoughts Endocrine Endocrinology: Denies polydipsia, polyphagia or polyuria Allergic/Immunologic Allergic/Immunologic ED: Denies mouth swelling, tongue swelling or urticaria EXAM Physical Exam Const Vital Signs: 09/19/23 12:04 09/19/23 12:04 09/19/23 12:07 Temperature 98.1 F 98.1 F 98.1 F Temperature Source Temporal Temporal Temporal Pulse Rate 99 99 99 Respiratory Rate 20 H 20 H 20 H Respiratory Effort Respiratory Depth Respiratory Pattern Blood Pressure 136/63 H 136/63 H 136/63 H Blood Pressure Mean 87 87 87 Pulse Ox 100 100 100 Oxygen Delivery Method Room Air Room Air Room Air 09/19/23 13:11 09/19/23 13:07 09/19/23 14:00 Temperature 97 F L 97 F L Temperature Source Oral Oral Pulse Rate 92 92 Respiratory Rate 16 16 Respiratory Effort Normal Respiratory Depth Shallow Respiratory Pattern Normal Blood Pressure 134/70 H 134/70 H Blood Pressure Mean 91 91 Pulse Ox 98 97 Oxygen Delivery Method Room Air Room Air Room Air 09/19/23 13:07 09/19/23 15:05 Temperature 98.1 F 97.8 F Temperature Source Temporal Temporal Pulse Rate 92 82 Respiratory Rate 18 16 Respiratory Effort Respiratory Depth Respiratory Pattern Blood Pressure 122/64 H 117/63 Blood Pressure Mean 83 81 Pulse Ox 93 98 Oxygen Delivery Method Room Air Positive well nourished and well developed General Appearance ED: well developed HEENT Reports normocephalic, head/scalp atraumatic and moist mucous membranes Eyes PERRL and EOMs intact bilaterally Neck no lymphadenopathy, supple and no JVD Resp Resp Narrative: Patient has some dyspnea at rest. Auscultation: rales bilateral base Cardio regular rate, regular rhythm and no murmurs Rate: tachycardic GI normal to inspection, nondistended, normoactive bowel sounds and non-tender Palpation: soft Back/Spine no CVA tenderness and normal ROM Extremity normal to inspection General Extremety ED: Yes edema General Extremity: edema bilateral lower extremity Details: moderate Neuro oriented x3 and CN's II-XII intact bilaterally Sensorium / Orientation: alert Motor Exam: strength 5/5 throughout Psych mental status grossly normal Mood & Affect: Negative for depressed or tearful Skin no rashes or lesions noted and no wounds MDM MDM MDM Narrative Medical decision making narrative: The patient was able to ambulate here in the department. He did not become hypoxic however he states he did feel weaker than normal and that he was more dyspneic than he would expect. His BNP is 2263. Troponin is 32 sodium 138 potassium 3.6 creatinine 0.95 hemoglobin 12.3 platelet count 196 white count 9.3. My independent interpretation of the chest x-ray is bilateral small pleural effusions with atelectatic changes. His EKG is 44 sinus with nonspecific intraventricular block at a ventricular rate of 86 bpm. The patient does not wish to stay in the hospital at this time. He does not wish to have an indwelling catheter despite me telling him that he will be urinating significantly more than normal as we will be increasing his Lasix. I offered him hospital admission and I had the conversation with him and his . They have capacity to make this decision. I advised the patient and his to schedule follow-up appointment with his primary care provider for Sunday. If however he is worsening or not substantially better I would expect him to need to come back to the hospital and he understands this. Before exiting the room I again went over the risk benefits of going home versus staying in the hospital. I did speak with the patient's primary care provider Misty Freed. We spoke regarding the patient's visit. They are going to reach out to him tomorrow and see about getting him scheduled for early next week. I also made mention that the patient is complaining about some skin soreness of his buttock. He did not wish me to look at this. He has been sitting around more than normal and I wonder if he is getting an early skin breakdown/decub. History & Record Review Discussion w/independent historian: Patient and Significant other Lab Data Attestation: I reviewed the patient's lab results. Labs: Laboratory Results - last 24 hr 09/19/23 12:45 WBC 9.3 RBC 4.20 L Hgb 12.3 L Hct 38.6 L MCV 91.9 MCH 29.3 MCHC 31.9 L RDW Std Deviation 52.8 H RDW Coeff of Jacquelyn 15.6 H Plt Count 196 MPV 11.6 Immature Gran % (Auto) 0.400 Neut % (Auto) 79.4 H Lymph % (Auto) 9.3 L [place] % (Auto) 9.5 Eos % (Auto) 1.0 Baso % (Auto) 0.4 Absolute Neuts (auto) 7.4 Absolute Lymphs (auto) 0.87 Nucleated RBC % 0 PT 14.6 INR 1.1 APTT 31.7 Sodium 138 Potassium 3.6 Chloride 102 Carbon Dioxide 30.0 Anion Gap 6 BUN 13 Creatinine 0.95 Estim Creat Clear Calc 68.31 Est GFR (MDRD) Af Amer 98 Est GFR (MDRD) Non-Af 81 BUN/Creatinine Ratio 13.7 Glucose 126 H Calcium 8.9 Total Bilirubin 0.50 Direct Bilirubin 0.18 AST 45 H ALT 34 Alkaline Phosphatase 150 H Troponin I High Sens 32 B-Natriuretic Peptide 2263.3 H Total Protein 6.5 Albumin 2.8 L Globulin 3.7 Radiography Diagnostic Testing: Clinical Impression(s) from Imaging Studies Chest X-Ray 09/19/23 13:00 IMPRESSION: Small bilateral pleural effusions with bibasilar atelectasis and/or infiltrates worse at the left lung base. Electronically Signed: Chapo Richard MD at 13:22 EDT , EKG Initial EKG: Attestation: I personally reviewed and interpreted this EKG as follows: Comments: Sinus rhythm with a ventricular rate of 86 bpm. Nonspecific intraventricular conduction block Discharge Plan Triage Chief Complaint: Shortness of Breath ED Provider: Dipak Guerrero Dx/Rx/DC Orders Clinical Impression: Heart failure, Acute dyspnea, Atherosclerotic heart disease of [place] coronary artery without angina pectoris Instructions: ED Heart Failure, Congestive (CHF) Prescriptions: New furosemide [Lasix] 40 mg tablet 60 mg PO BID 5 Days Qty: 15 0RF No Action pravastatin 80 MG tablet 80 mg PO QHS nitroglycerin [Nitrostat] 0.4 MG tablet, sublingual 0.4 mg sublingual PRN PRN (Reason: CHEST PAIN) brimonidine-timolol [Combigan] 10 ML drops 1 drp Left Eye BID latanoprost (PF) 7.5 ML drops 1 drp Each Eye DAILY aspirin 81 MG tablet 81 mg PO DAILY@0800 multivitamin [Daily Multiple] 1 EACH tablet 1 tab PO DAILY vit C,D-Gl-wyjqs-lutein-zeaxan [PreserVision AREDS-2] 1 EACH capsule 1 capsule PO DAILY pravastatin 80 MG tablet 80 mg PO QHS Qty: 30 0RF losartan 50 MG tablet 50 mg PO DAILY Qty: 30 0RF metoprolol succinate 100 MG tablet extended release 24 hr 100 mg PO DAILY Qty: 30 0RF clopidogrel 75 MG tablet 75 mg PO DAILY Qty: 30 0RF Primary Care Provider: Thomas Krishna Referrals: Misty Freed NP-Mary [facility] [Non-Staff] - 3-5 Days Thomas Krishna MD [Primary Care Provider] - Disposition Disposition: Home, Self Care
--- NOTE | 2023-09-19 12:58 | EKG12_ITS ---
Test Reason : ABNORMAL LABS Blood Pressure : / mmHG Vent. Rate : 086 BPM Atrial Rate : 086 BPM P-R Int : 188 ms QRS Dur : 134 ms QT Int : 368 ms P-R-T Axes : 048 015 158 degrees QTc Int : 440 ms Sinus rhythm with marked sinus arrhythmia Non-specific intra-ventricular conduction block Possible Lateral infarct , age undetermined Abnormal ECG Confirmed by Vishnu Rosas ([id number]), film editor supervisor DAVID PACE ([id number]) on 09/20/2023 10:44:35 AM Referred By: Confirmed By:Vishnu Rosas
--- NOTE | 2023-09-19 13:00 | RAD_ITS ---
STUDY: X-RAY CHEST REASON FOR EXAM: Male, 78 years old. chf TECHNIQUE: Single AP portable view of the chest. COMPARISON: Comparison is made with prior study February 28, 2018. FINDINGS: EKG electrodes are seen. Small bilateral pleural effusions with bibasilar atelectasis and/or infiltrate worse at the left lung base. Sternal cerclage wires and vascular clips are present from a prior sternotomy and coronary artery bypass graft procedure (CABG). A left-sided dual-chamber pacemaker is seen. Normal mediastinum and yessica. Normal visualized pulmonary arteries. Normal visualized aortic arch and descending thoracic aorta. Normal visualized thoracic spine. Normal visualized ribs, clavicles, and shoulders. There is no demonstrated abnormality of the visualized soft tissue structures of the upper abdomen. RAD/Chest 1 View (Portable) IMPRESSION: Small bilateral pleural effusions with bibasilar atelectasis and/or infiltrates worse at the left lung base. Electronically Signed: Chapo Richard MD at 13:22 EDT ,
[2023-09-19 13:19] LABS: Absolute Lymphocyte Count 0.87 X10^3/uL (0.83-4.51); Absolute Neutrophil Count 7.4 X10^3/uL (2.0-7.7); Basophil# 0.04 X10^3/uL; Basophil% 0.4 % (0-1); Eosinophil# 0.09 X10^3/uL; Hematocrit 38.6 % (40-54); Hemoglobin 12.3 g/dL (13.0-16.5); Lymphocyte # 0.87 X10^3/ul (0.83-4.51); Lymphocyte % 9.3 % (19-41); Mean Corp Hgb Conc 31.9 g/dL (32-36); Mean Corpuscular Hgb 29.3 pg (27.0-32.0); Mean Corpuscular Volume 91.9 fL (80-94); Mean Platelet Vol. 11.6 fl (6.2-12.0); Monocyte# 0.88 X10^3/uL; Monocyte% 9.5 % (0-10); NRBC Flagged by Analyzer 0 % (0-5); Neutrophil # 7.39 X10^3/uL (2.7-7.7); Neutrophil % 79.4 % (47-70); Platelet Count 196 K/mm3 (150-450); RBC Distribution Width CV 15.6 % (11.6-14.6); RBC Distribution Width SD 52.8 fl (35.1-43.9); White Blood Count 9.3 K/mm3 (4.4-11.0)
[2023-09-19 13:25] LABS: International Normalized Ratio 1.1; Partial Thromboplast Time 31.7 Seconds (24.1-36.2); Prothrombin Time (Protime)PT. 14.6 SECONDS (11.7-14.9)
[2023-09-19 13:34] LABS: AST(SGOT) 45 U/L (15-37); Alanine Aminotransfer ALT/SGPT 34 U/L (16-61); Albumin, Serum 2.8 g/dL (3.2-5.0); Alkaline Phosphatase 150 U/L (45-117); Anion Gap 6 (5-15); BUN 13 mg/dL (7-18); BUN/Creat Ratio 13.7 RATIO (10-20); Bilirubin, Direct 0.18 mg/dL (0.00-0.30); Calcium,Total 8.9 mg/dL (8.5-10.1); Chloride 102 mmol/L (98-107); Creatinine, Serum 0.95 mg/dL (0.70-1.30); EST Glomerular Filtration Rate 81 mL/min (>60); Est Glom Filt Rate - Afr Amer 98 mL/min (>60); Estimated Creatinine Clearance 68.31 ml/min; Globulin 3.7 g/dL (2.2-4.2); Glucose 126 mg/dL (74-106); Potassium 3.6 mmol/L (3.5-5.1); Protein, Total 6.5 g/dL (6.4-8.2); Sodium Level 138 mmol/L (136-145); Troponin-I HS 32 pg/mL (3.0-78.0)
[2023-09-19 13:41] LABS: BNP,B-Type NATRIURETIC PEPTIDE 2263.3 pg/mL (0-100)
== END 2023-09-19 15:52 | disposition home or self-care (01) ==
PROVIDERS: Emergency Provider Emergency Medicine; PCP Family Medicine; Visit Provider Emergency Medicine
DX: R06.00 Dyspnea, unspecified (principal); I11.0 Hypertensive heart disease with heart failure; I50.22 Chronic systolic (congestive) heart failure; I25.10 Atherosclerotic heart disease of native coronary artery without angina pectoris; Z87.891 Personal history of nicotine dependence; Z86.73 Personal history of transient ischemic attack (TIA), and cerebral infarction without residual deficits; Z79.82 Long term (current) use of aspirin; Z79.02 Long term (current) use of antithrombotics/antiplatelets; Z85.89 Personal history of malignant neoplasm of other organs and systems; E78.5 Hyperlipidemia, unspecified; Z79.899 Other long term (current) drug therapy
CPT/HCPCS: 71045; 80048; 80076; 83880; 84484; 85025; 85610; 85730; 93005; 99284; A4216

== ENCOUNTER → 2023-12-10 | Outpatient (CLI) | payer MEDICARE, OTHER, SELFPAY ==
[2023-12-10 09:13] LABS: Hemoglobin 10.1 g/dL (13.0-16.5); Mean Corp Hgb Conc 31.6 g/dL (32-36); Mean Corpuscular Hgb 28.7 pg (27.0-32.0); Mean Corpuscular Volume 90.9 fL (80-94); Platelet Count 269 K/mm3 (150-450); RBC Distribution Width CV 15.4 % (11.6-14.6); RBC Distribution Width SD 50.8 fl (35.1-43.9); Red Blood Count 3.52 M/mm3 (4.6-6.2); White Blood Count 10.5 K/mm3 (4.4-11.0)
[2023-12-10 09:46] LABS: BNP,B-Type NATRIURETIC PEPTIDE 2164.5 pg/mL (0-100)
[2023-12-10 09:49] LABS: Anion Gap 5 (5-15); BUN 18 mg/dL (7-18); BUN/Creat Ratio 19.5 RATIO (10-20); Calcium,Total 8.9 mg/dL (8.5-10.1); Chloride 102 mmol/L (98-107); Creatinine, Serum 0.92 mg/dL (0.70-1.30); EST Glomerular Filtration Rate 84 mL/min (>60); Est Glom Filt Rate - Afr Amer 101 mL/min (>60); Glucose 118 mg/dL (74-106); Potassium 3.7 mmol/L (3.5-5.1); Sodium Level 133 mmol/L (136-145)
== END | disposition home or self-care (01) ==
LOC: LAB 08:39
PROVIDERS: PCP Family Medicine; Referring Provider Nurse Practitioner Family; Visit Provider Nurse Practitioner Family
DX: R42 Dizziness and giddiness (principal); I50.22 Chronic systolic (congestive) heart failure; R53.1 Weakness; R06.02 Shortness of breath
CPT/HCPCS: 36415; 80048; 83880; 85027

== ENCOUNTER → 2024-01-10 | Outpatient (CLI) | payer MEDICARE, OTHER, SELFPAY ==
--- NOTE | 2024-01-10 09:47 | CDU_ITS ---
Reason For Study: S/P R CEA, known L occlusion Rt. Velocities/BP Lt. Velocities/BP Prox CCA 98.6/18.8 cm/sec. Prox CCA 54.4 cm/sec. Mid CCA 75.3/20.0 cm/sec. Mid CCA 59.1 cm/sec. Dist CCA 72.8/13.9 cm/sec. Dist CCA 35.3 cm/sec. Prox ICA 50.2/13.2 cm/sec. Prox ECA 75.4 cm/sec. Mid ICA 147.2/41.3 cm/sec. Lt. Vert. 72.4/20.8 cm/sec. Dist ICA 92.4/24.8 cm/sec. Rt. ICA/CCA = 2.0. Prox ECA 36.9 cm/sec. Rt. Vert. 50.6/8.1 cm/sec. Right Extracranial There is heterogeneous, smooth atherosclerotic plaque noted in the right common carotid artery. There is homogeneous, smooth atherosclerotic plaque noted in the right internal carotid artery. There is homogeneous, smooth atherosclerotic plaque noted in the right external carotid artery. Antegrade flow is noted in the right vertebral artery. Left Extracranial There is homogeneous, smooth atherosclerotic plaque noted in the left common carotid artery. There is heterogeneous, irregular atherosclerotic plaque noted in the left internal carotid artery. The left internal carotid artery is occluded. There is heterogeneous, irregular atherosclerotic plaque noted in the left external carotid artery. Antegrade flow is noted in the left vertebral artery. Procedure Carotid Duplex [id number]. This is a Carotid Duplex examination using B-mode, color flow and specral Doppler. The exam was diagnostic. Exam performed in department. VL/Carotid Duplex Ultrasound Interpretation Summary Moderate (50-69%) stenosis right extracranial internal carotid. Total occlusion of the left extracranial internal carotid. Patent and antegrade vertebrals bilaterally. Ordering Physician: Frank Marin Referring Physician: Frank Marin Performed By: Brennan Kapoor RVT and Student
--- NOTE | 2024-01-10 09:47 | ART_ITS ---
Reason For Study: claudication Procedure A bilateral lower extremity continuous wave Doppler with analog waveform analysis,segmental pressures,and ankle brachial indexes without exercise. Left Segmental Pressures Left brachial= 117mmHg. Left posterior tibial artery = 180mmHg. Left dorsalis pedis artery = 143mmHg. Left digit = 40 mmHg. The left dorsalis pedis waveforms are monophasic. The left posterior tibial artery waveforms are monophasic. Right Segmental Pressures Right brachial= 127mmHg. Right posterior tibial artery = 146mmHg. Right dorsalis pedis artery = 130mmHg. Right digit = 48 mmHg. The right dorsalis pedis waveforms are biphasic. The right posterior tibial artery waveforms are biphasic. Indices The right ankle brachial index by the dorsalis pedis is 1.02. The right ankle brachial index by the posterior tibial artery is 1.15. The right digital-brachial index is .38. The left ankle brachial index by the posterior tibial artery is 1.42. The left ankle brachial index by the dorsalis pedis is 1.13. The left digital-brachial index is .31. VL/Lower Ext Art Exam w/o Exercis Interpretation Summary Right GISELL 1.15, may be artificially elevated.. Doppler/PVR waveforms of the rig ht leg mildly diminished at rest. TBI diminished consistent with presence of disease. Left GISELL 1.42, artificially elevated. Doppler/PVR waveforms of the left leg mod erately diminished at rest. TBI diminished consistent with presence of disease. Ordering Physician: Frank Marin Performed By: Brennan Kapoor RVT and Student
== END | disposition home or self-care (01) ==
LOC: CVS 09:43
PROVIDERS: PCP Family Medicine; Referring Provider Surgery Trauma Surgery; Visit Provider Surgery Trauma Surgery
DX: I70.613 Atherosclerosis of nonbiological bypass graft(s) of the extremities with intermittent claudication, bilateral legs (principal); I65.21 Occlusion and stenosis of right carotid artery
CPT/HCPCS: 93880; 93923

== ENCOUNTER 2024-01-17 08:42 | Emergency (ER) | payer MEDICARE, OTHER, SELFPAY ==
[2024-01-17] VITALS (34 sets, daily range): BP systolic 99–131; BP diastolic 43–79; PULSE 77–104; RESP 0–24; TEMP 36.2–36.3; O2SAT 89–100; BMI 27.5
--- NOTE | 2024-01-17 08:54 | EKG12_ITS ---
Test Reason : SOB Blood Pressure : / mmHG Vent. Rate : 090 BPM Atrial Rate : 088 BPM P-R Int : 164 ms QRS Dur : 096 ms QT Int : 396 ms P-R-T Axes : 046 053 -42 degrees QTc Int : 484 ms Normal sinus rhythm Low voltage QRS Nonspecific ST and T wave abnormality Abnormal ECG Confirmed by ADALBERTO REVELES, ZAIRA ([id number]), film or videotape editor HUY PENN ([id number]) on 01/21/2024 11:07:04 AM Referred By: Confirmed By:ZAIRA GLOVER MD
--- NOTE | 2024-01-17 08:59 | EX.ED.DYSGE1 ---
HPI History of Present Illness Chief Complaint: Weakness Detail of Chief Complaint: ICD shock Informant: patient and spouse/S.O. Narrative Narrative: Patient presents secondary to his ICD shocking him twice on January 12. He has a ICD in place with a history of nonsustained V. tach and cardiomyopathy. He reported was shocked twice during his sleep in the stripper opaquer hours of January 12. He presents today for evaluation. He has not had any further shocks. He has had generalized weakness ongoing since July that is unchanged. is concerned that he may be holding onto more fluid as he normally self caths 4-5 times a day but is only been doing it twice a day. No fever or chills. No chest pain or palpitations. 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 Peripheral arteriosclerosis Non-sustained ventricular tachycardia Dual ICD (implantable cardioverter-defibrillator) in place (04/29/18) BPH (benign prostatic hyperplasia) Myocardial infarction Chronic systolic (congestive) heart failure Cerebral infarction due to unspecified occlusion or stenosis of bilateral carotid arteries SOB (shortness of breath) Glaucoma CAD (coronary artery disease) Bladder cancer Carotid artery disease Hypertension Hyperlipidemia ICAO (internal carotid artery occlusion) Stroke Home Medications ?Medication ?Instructions ?Recorded ?Last Taken ?Type aspirin 81 mg tablet,delayed 81 mg PO DAILY@0800 HEART HEALTH 02/28/18 02/27/18 History release multivitamin (Daily Multiple 1 tab PO DAILY SUPPLEMENT 02/28/18 02/27/18 History tablet) nitroglycerin 0.4 mg sublingual 0.4 mg sublingual PRN PRN CHEST 02/28/18 Unknown History tablet (Nitrostat) PAIN pravastatin 80 mg tablet 80 mg PO QHS CHOLESTEROL 02/28/18 02/27/18 History vit C 250 mg-vit E 90 mg-zinc 40 1 capsule PO DAILY EYE HEALTH 02/28/18 02/27/18 History mg-copper 1 au-sdyeyq-kylcml capsule (PreserVision AREDS-2) clopidogrel 75 mg tablet 75 mg PO DAILY blood thinner #30 03/08/18 Unknown Rx tabs metoprolol succinate 100 mg 100 mg PO DAILY blood pressure ##30 03/08/18 Unknown Rx tablet,extended release 24 hr cranberry 500 mg capsule 500 mg PO DAILY PRN 10/15/23 Unknown History ferrous sulfate 325 mg (65 mg 325 mg PO DAILY 10/15/23 Unknown History iron) tablet (FeroSul) tamsulosin 0.4 mg capsule 0.4 mg PO DAILY 10/15/23 Unknown History dapagliflozin propanediol 10 mg 10 mg PO DAILY #30 tabs 10/31/23 Unknown Rx tablet spironolactone 25 mg tablet 25 mg PO DAILY #30 tabs 10/31/23 Unknown Rx furosemide 40 mg tablet (Lasix) 60 mg PO BID 12/19/23 Unknown History bimatoprost 0.01 % eye drops 1 drp ophthalmic (eye) QHS 01/17/24 Unknown History (Lumigan) Allergy/AdvReac Type Severity Reaction Status Date / Time quinapril (From Accupril) AdvReac Other Verified 12/19/23 15:20 Family History Mother Diabetes CAD (coronary artery disease) Myocardial infarction Father Prostate cancer Aunt Diabetes Brother Ischemic heart disease Myocardial infarction Cancer Other Chronic systolic (congestive) heart failure Surgical History History of transurethral resection of bladder tumor (TURBT) (~2016) S/P carotid endarterectomy (05/05/17) S/P bladder tumor excision with fulguration Hx of heart bypass surgery (~1993) S/P aortobifemoral bypass surgery (09/27/06) Social History Smoking Status: Former smoker alcohol intake: current alcohol intake frequency: holidays/special occasions only substance use type: does not use ROS ROS ED Constitutional Constitutional ED: Denies chills or fever(s) Eyes Eyes: Denies discharge from eye(s) ENT ENT ED: Denies discharge from eye(s), rhinorrhea or sore throat Cardiovascular Cardiovascular: Denies chest pain or palpitations Respiratory/Chest Respiratory/Chest: Denies cough or dyspnea Gastrointestinal Gastrointestinal: Denies abdominal pain, nausea or vomiting Genitourinary Genitourinary ED: Reports other Details: Decreased frequency of catheterization Musculoskeletal Musculoskeletal: Denies back pain or extremity pain Integumentary Denies Abrasions or rash Neurologic Neurologic: Reports weakness; Denies headache(s) Psychiatric Psychiatric: Denies anxiety or depression Allergic/Immunologic Allergic/Immunologic ED: Denies lip swelling or urticaria EXAM Physical Exam Const Vital Signs: 01/17/24 08:42 01/17/24 08:43 01/17/24 09:10 Temperature 97.2 F L Temperature Source Temporal Pulse Rate 104 H 99 Respiratory Rate 12 12 Respiratory Effort Normal Non-Labored Respiratory Pattern Normal Blood Pressure 100/43 L 99/54 L Blood Pressure Mean 62 69 Pulse Ox 100 98 Oxygen Delivery Method Room Air Room Air 01/17/24 10:30 01/17/24 10:45 01/17/24 11:00 Temperature Temperature Source Pulse Rate 77 77 Respiratory Rate Respiratory Effort Respiratory Pattern Blood Pressure 114/53 L 116/68 125/60 H Blood Pressure Mean 70 83 78 Pulse Ox 100 Oxygen Delivery Method 01/17/24 12:00 01/17/24 13:59 Temperature Temperature Source Pulse Rate 93 88 Respiratory Rate 21 H 14 Respiratory Effort Respiratory Pattern Blood Pressure 121/54 H 131/68 H Blood Pressure Mean 71 89 Pulse Ox 98 Oxygen Delivery Method Room Air Positive cachectic General Appearance ED: cachectic Nutritional Appearance: cachectic HEENT Reports moist mucous membranes Eyes EOMs intact bilaterally Chest Wall inspection of chest normal and palpation of chest normal Resp normal respiratory effort and clear to auscultation bilaterally Cardio regular rate and regular rhythm GI non-tender Palpation: soft Extremity normal to inspection Neuro oriented x3 Neuro Narrative: Chronic right-sided weakness secondary to prior stroke. Psych Psych Narrative: Flat affect Mood & Affect: depressed Skin no rashes or lesions noted MDM MDM MDM Narrative Medical decision making narrative: Patient placed on monitor technician. IV line initiated. EKG obtained to evaluate for cardiac arrhythmia/ischemia. Chest x-ray obtained to evaluate for acute lung pathology, cardiac size, or mediastinal abnormality. Labwork obtained to evaluate for leukocytosis, anemia, and electrolyte derangement. Pacemaker interrogation will be obtained. Nursing staff reports that the cardiology clinic did send paperwork down on the when they thought patient was coming to the emergency room. Will asked them to resend this as well. History & Record Review Discussion w/independent historian: Patient and Significant other Additional record(s) reviewed:: Prior outpatient record and Prior labs Lab Data Attestation: I reviewed the patient's lab results. Labs: Laboratory Results - last 24 hr 01/17/24 01/17/24 01/17/24 09:05 11:31 11:59 WBC 16.7 H RBC 3.70 L Hgb 10.7 L Hct 33.1 L MCV 89.5 MCH 28.9 MCHC 32.3 RDW Std Deviation 54.0 H RDW Coeff of Jacquelyn 16.6 H Plt Count 332 MPV 10.8 Immature Gran % (Auto) 0.900 Neut % (Auto) 88.0 H Lymph % (Auto) 4.0 L Baker % (Auto) 6.9 Eos % (Auto) 0.0 Baso % (Auto) 0.2 Absolute Neuts (auto) 14.7 H Absolute Lymphs (auto) 0.66 L Nucleated RBC % 0 Sodium 130 L Potassium 3.3 L Chloride 93 L Carbon Dioxide 27.0 Anion Gap 10 BUN 22 H Creatinine 1.09 Estim Creat Clear Calc 57.42 Est GFR (MDRD) Af Amer 84 Est GFR (MDRD) Non-Af 69 BUN/Creatinine Ratio 20.2 H Glucose 149 H Calcium 8.9 Troponin I High Sens 182 H* 173 H* B-Natriuretic Peptide 3140.7 H Urine Color Yellow Urine Clarity Clear Urine pH 5.0 Ur Specific [place] 1.015 Urine Protein Negative Urine Glucose (UA) 250 H Urine Ketones Negative Urine Occult Blood Negative Urine Nitrite Negative Urine Bilirubin Negative Urine Urobilinogen 4 H Ur Leukocyte Esterase 100 H Urine RBC 0 SEEN Urine WBC 5-10 SEEN Ur Squamous Epith Cells 0-5 SEEN Urine Bacteria 3+ Urine Mucus 0 SEEN Radiography Chest X-Ray - ED: 1 View, Read by ED Physician and Chronic Changes Diagnostic Testing: Clinical Impression(s) from Imaging Studies Chest X-Ray 01/17/24 09:25 IMPRESSION: No acute abnormality is seen. Electronically Signed: Chapo Richard MD at 9:47 EDT , EKG Initial EKG: Attestation: I personally reviewed and interpreted this EKG as follows: Interpretation: Sinus Rhythm (Sinus rhythm at 90 bpm with PVCs.) and - Treatment and Re-Evaluation :: CBC was a white count of 16.7 with 88% neutrophils. Hemoglobin is 10.7. Hemoglobin appears stable compared to prior values. Chemistry studies reveal a sodium of 139 potassium 3.3. Chloride is 93. BUN is slightly elevated at 22 with a creatinine of 1.09. Glucose is 149. Initial troponin is elevated at 182 with a 2-hour repeat troponin of 173. BNP is 3140. Urinalysis does reveal 5-10 white cells with 3+ bacteria. No nitrites appreciated. EKG is sinus rhythm with PVCs. No obvious ischemia. Portable chest x-ray per my interpretation reveals pacer wires to be intact with chronic changes. No obvious overt signs of CHF. Radiology interpretation is reviewed and agrees. Patient is receiving IV fluids. Blood pressure is improved and is currently 131/68 with a heart rate of 88. Patient received IV potassium replacement as well as IV Rocephin for his urinary infection. Urine culture was sent. Patient's pacemaker was interrogated. This revealed the patient received 2 shocks early in the morning on the 14. This was for VT/VF. I spoke with the rep who stated the patient also had a few areas that looks like possible A-fib but could have just been noise to the atrial lead. He does not have any known history of atrial fibrillation. I spoke with Dr. Carlos who has seen the patient in the clinic. He reviewed the patient's chart and called me back. He states that he had only seen the patient 1 time and he had previously received his care at [facility] in [place]. Although the patient's potassium is slightly low, he does not think that we can rely on this for the cause of his V. tach and does feel patient should be transferred back to [facility] to be evaluated by electrophysiology. I spoke with hospitalist at [facility] and patient will be transferred for further treatment along with cardiology evaluation. Discharge Plan Triage Chief Complaint: Weakness ED Provider: Moriah Torres Dx/Rx/DC Orders Clinical Impression: ICD (implantable cardioverter-defibrillator) discharge, Ventricular tachycardia, Hypokalemia, Hyponatremia, UTI (urinary tract infection) Prescriptions: No Action ferrous sulfate [FeroSul] 325 mg (65 mg iron) tablet 325 mg PO DAILY cranberry 500 mg capsule 500 mg PO DAILY PRN Rx Instructions: administer with meals tamsulosin 0.4 mg capsule 0.4 mg PO DAILY dapagliflozin propanediol 10 mg tablet 10 mg PO DAILY Qty: 30 1RF spironolactone 25 mg tablet 25 mg PO DAILY Qty: 30 1RF pravastatin 80 MG tablet 80 mg PO QHS nitroglycerin [Nitrostat] 0.4 MG tablet, sublingual 0.4 mg sublingual PRN PRN (Reason: CHEST PAIN) aspirin 81 MG tablet 81 mg PO DAILY@0800 multivitamin [Daily Multiple] 1 EACH tablet 1 tab PO DAILY vit C,D-Dy-huynz-lutein-zeaxan [PreserVision AREDS-2] 1 EACH capsule 1 capsule PO DAILY metoprolol succinate 100 MG tablet extended release 24 hr 100 mg PO DAILY Qty: 30 0RF clopidogrel 75 MG tablet 75 mg PO DAILY Qty: 30 0RF Lumigan 0.01 % drops 1 drp ophthalmic (eye) QHS furosemide [Lasix] 40 mg tablet 60 mg PO BID Primary Care Provider: Thmoas Krishna Referrals: Thomas Krishna MD [Primary Care Provider] - Print Language: Niuean Disposition Disposition: Acute Care Hospital Discharge Location: [facility]
[2024-01-17] MEDS: 0.9% Normal Saline (1000mL) 1,000 ML 150 ML IV (09:06)
[2024-01-17 09:21] LABS: Absolute Lymphocyte Count 0.66 X10^3/uL (0.83-4.51); Absolute Neutrophil Count 14.7 X10^3/uL (2.0-7.7); Basophil# 0.03 X10^3/uL; Basophil% 0.2 % (0-1); Hematocrit 33.1 % (40-54); Hemoglobin 10.7 g/dL (13.0-16.5); Lymphocyte # 0.66 X10^3/ul (0.83-4.51); Mean Corp Hgb Conc 32.3 g/dL (32-36); Mean Corpuscular Hgb 28.9 pg (27.0-32.0); Mean Corpuscular Volume 89.5 fL (80-94); Mean Platelet Vol. 10.8 fl (6.2-12.0); Monocyte# 1.15 X10^3/uL; Monocyte% 6.9 % (0-10); NRBC Flagged by Analyzer 0 % (0-5); Neutrophil # 14.69 X10^3/uL (2.7-7.7); Platelet Count 332 K/mm3 (150-450); RBC Distribution Width CV 16.6 % (11.6-14.6); White Blood Count 16.7 K/mm3 (4.4-11.0)
--- NOTE | 2024-01-17 09:25 | RAD_ITS ---
STUDY: X-RAY CHEST REASON FOR EXAM: Male, 78 years old. Sob TECHNIQUE: Single AP portable view of the chest. COMPARISON: Comparison is made with prior study September 19, 2023. FINDINGS: EKG electrodes are seen. Mild elevation of the right hemidiaphragm. There is no demonstrated pleural abnormality. Sternal cerclage wires and vascular clips are present from a prior sternotomy and coronary artery bypass graft procedure (CABG). A left-sided dual-chamber pacemaker seen. Normal mediastinum and yessica. Normal visualized pulmonary arteries. There is atherosclerotic calcification of the aortic arch with tortuosity. Normal visualized thoracic spine. Normal visualized ribs, clavicles, and shoulders. There is no demonstrated abnormality of the visualized soft tissue structures of the upper abdomen. RAD/Chest 1 View (Portable) IMPRESSION: No acute abnormality is seen. Electronically Signed: Chapo Richard MD at 9:47 EDT ,
[2024-01-17 09:34] LABS: BNP,B-Type NATRIURETIC PEPTIDE 3140.7 pg/mL (0-100)
[2024-01-17 09:41] LABS: Anion Gap 10 (5-15); BUN 22 mg/dL (7-18); BUN/Creat Ratio 20.2 RATIO (10-20); Calcium,Total 8.9 mg/dL (8.5-10.1); Chloride 93 mmol/L (98-107); Creatinine, Serum 1.09 mg/dL (0.70-1.30); EST Glomerular Filtration Rate 69 mL/min (>60); Est Glom Filt Rate - Afr Amer 84 mL/min (>60); Estimated Creatinine Clearance 57.42 ml/min; Glucose 149 mg/dL (74-106); Potassium 3.3 mmol/L (3.5-5.1); Sodium Level 130 mmol/L (136-145); Troponin-I HS 182 pg/mL (3.0-78.0)
[2024-01-17] MEDS: Potassium Chloride 10mEq/100mL 10 MEQ/100 ML IV.SOLN. 100 MEQ IV BOLUS ×4 (10:45→13:57)
[2024-01-17 12:03] LABS: Mucous, Urine 0 SEEN /hpf (<or=2+); Red Blood Cells-Urine 0 SEEN /hpf (0-5)
[2024-01-17 12:10] LABS: Color, Urine Yellow (Yellow); Glucose, Dipstick 250 mg/dl (Normal); Ketone-Dipstick Negative (Negative); Leukocyte Esterase-Dipstick 100 /ul (Negative); Nitrite-Dipstick Negative (Negative); Occult Blood-Urine Negative /ul (Negative); Protein-Dipstick Negative (Negative); Specific Gravity, Urine 1.015 (1.002-1.030); Urine Bilirubin Dipstick Negative (Negative); Urine Clarity Clear (Clear); Urine Urobilinogen 4 mg/dl (Normal)
[2024-01-17 12:13] LABS: Troponin-I HS 173 pg/mL (3.0-78.0)
[2024-01-17 12:35] LABS: Bacteria 3+ /hpf (None Seen); Squamous Epithelial Cells - UA 0-5 SEEN /hpf (0-5); White Blood Cells 5-10 SEEN /hpf (0-5)
--- NOTE | 2024-01-17 13:38 | NURSING ---
1312 CALLED [facility] FOR TRANSFER. DIAGNOSIS: ICD FIRED, VTACH, HYPONATREMIA, HYPOKALEMIA, UTI
--- NOTE | 2024-01-17 14:21 | NURSING ---
DR YAAKOV HALL FOR DR DOW
--- NOTE | 2024-01-17 14:41 | NURSING ---
ACCEPTED AT [facility]
--- NOTE | 2024-01-17 14:59 | NURSING ---
[facility] 4W ROOM 440 NURSE TO NURSE [phone] YAAKOV HALL
--- NOTE | 2024-01-17 15:15 | NURSING ---
CALLED [facility], ETA IS 2 HRS
[2024-01-17] MEDS: Ceftriaxone 1 GM/50 ML BAG IV (15:40)
--- NOTE | 2024-01-17 17:44 | NURSING ---
CALLED [facility], ETA IS 2 HRS
== END 2024-01-17 20:41 | disposition short-term general hospital (02) ==
PROVIDERS: Emergency Provider Emergency Medicine; PCP Family Medicine; Visit Provider Emergency Medicine
DX: T82.897A Other specified complication of cardiac prosthetic devices, implants and grafts, initial encounter (principal); I11.0 Hypertensive heart disease with heart failure; I50.22 Chronic systolic (congestive) heart failure; I47.20 Ventricular tachycardia, unspecified; N39.0 Urinary tract infection, site not specified; F32.A Depression, unspecified; E87.6 Hypokalemia; E78.5 Hyperlipidemia, unspecified; E87.1 Hypo-osmolality and hyponatremia; Z87.891 Personal history of nicotine dependence; I25.10 Atherosclerotic heart disease of native coronary artery without angina pectoris; Z95.810 Presence of automatic (implantable) cardiac defibrillator; Z86.73 Personal history of transient ischemic attack (TIA), and cerebral infarction without residual deficits; I25.2 Old myocardial infarction; Z79.82 Long term (current) use of aspirin; Z85.89 Personal history of malignant neoplasm of other organs and systems; Z79.899 Other long term (current) drug therapy; Z79.02 Long term (current) use of antithrombotics/antiplatelets
CPT/HCPCS: 36415; 71045; 80048; 81001; 83880; 84484; 85025; 87077; 87086; 87088; 87186; 93005; 96361; 96365; 99285; J7030; A4216